=== PATIENT | male | born 1955 | race Caucasian/White ===

== ENCOUNTER 2016-05-15 20:21 | Inpatient (IN) | payer BC, MEDICARE ==
[~2016-05-15] VITALS: Ht 177.8 cm; Wt 88.0 kg
--- NOTE | ~2016-05-15 | PN ---
PATIENT:HOSSEIN CHAVEZ MEDICAL RECORD: [id number] LOCATION:D.MS Michelle221 ADMISSION DATE: 05/18/16 PROGRESS NOTE DATE OF SERVICE: 05/20/2016 He has had no return of bowel function. His pain is controlled. The patient was quite anxious. His nausea is improved. His anxiety is much better now that he is on Valium. TRANSINT:[id number] Voice Confirmation ID: [id number] DOCUMENT ID: [id number] ELISSA CRUZ MD CC: [id number] DICTATION DATE: 05/21/161913 REGIONAL DRIVER: 05/21/16 2100 ADM IN [facility] [address] [id number]
--- NOTE | ~2016-05-15 | DS ---
PATIENT:HOSSEIN CHAVEZ :53 MEDICAL RECORD: [id number] DISCHARGE SUMMARY ADMISSION DATE: 05/18/16 DISCHARGE DATE: 05/26/16 PRINCIPAL DIAGNOSIS: Diverticulosis with focal mild diverticulitis, recurrent. PROCEDURES: 1. Laparoscopic hand-assisted sigmoid colectomy. 2. Incidental appendectomy. 3. Colonoscopy. HOSPITAL COURSE: The patient was admitted with abdominal pain. He underwent a colonoscopy by Dr. Sanchez. It was felt that his recurrent pain was due to diverticulitis or diverticulosis. He has had multiple bouts of diverticulitis in the past. He underwent the above operative procedure. Bowel function returned. His diet was advanced. He was dismissed home. He is going home with [facility] for pain. I will see him in the office in 2-3 weeks. TRANSINT:[id number] Voice Confirmation ID: [id number] DOCUMENT ID: [id number] ELISSA CRUZ MD CC: ROSI ESTRELLA MD, SALVATORE CASTAÑEDA MD, ALLISON CHILDRESS MD and [id number] A DO DICTATION DATE: 05/26/16 145 ENVIRONMENTAL SPECIALIST: 05/27/16 0506 DIS IN 05/26/16 [facility] [address] [id number]
--- NOTE | ~2016-05-15 | PN ---
PATIENT:HOSSEIN CHAVEZ MEDICAL RECORD: [id number] LOCATION:D.MS Michelle221 ADMISSION DATE: 05/18/16 PROGRESS NOTE DATE OF SERVICE: 05/20/2016 This is a progress note addendum. He had no return of bowel function. He says pain is controlled. He seems a little depressed. TRANSINT:[id number] Voice Confirmation ID: [id number] DOCUMENT ID: [id number] ELISSA CRUZ MD CC: [id number] DICTATION DATE: 05/23/161819 TRAILER SECTIONS ASSEMBLER: 05/24/16 0206 ADM IN [facility] [address] [id number]
--- NOTE | ~2016-05-15 | OP ---
PATIENT NAME: HOSSEIN CHAVEZ MEDICAL RECORD: [id number] :53 LOCATION:D.MS [id number] ADMISSION DATE:05/18/16 SURGEON: ELISSA CRUZ MD DATE OF OPERATION: 05/19/2016 PREOPERATIVE DIAGNOSES: 1. Multiple bouts of recurrent diverticulitis 2. Severe diverticulosis. 3. Lower abdominal pain. POSTOPERATIVE DIAGNOSES: 1. Multiple bouts of recurrent diverticulitis 2. Severe diverticulosis. 3. Lower abdominal pain. PROCEDURES: 1. Hand-assisted laparoscopic sigmoid colectomy with splenic flexure takedown. 2. Incidental appendectomy. SURGEON: Elissa Cruz MD. AVIATION PROGRAM MANAGER: None. BLOOD LOSS: 100 cc. ANESTHESIA: General. COMPLICATIONS: None. The risks, possible complications and alternatives to procedure were explained to the patient. He elects to proceed. The indication for the incidental appendectomy is to avoid diagnostic confusion in the future should the patient have a recurrence or persistence of abdominal pain. OPERATIVE COURSE: The patient was conveyed to the operating room electively on 05/19/2016. General anesthesia was induced by the anesthesia staff. The abdomen was sterilely prepped and draped. The patient was in a lithotomy position. A transverse incision was accomplished 2 fingerbreadths cephalad to the pubic symphysis. Sharp dissection was carried down through skin and subcutaneous tissue as well as Paula fascia. I incised the anterior fascia transversely. I the rectus abdominis muscles. I entered the peritoneal cavity sharply. A lap disc device was inserted. A trocar was inserted through the lap disk device and the iris was tightened down. CO2 insufflation was begun. Under direct internal vision utilizing the television camera, a 5-mm trocar was inserted through an incision at the umbilicus. Another 5-mm trocar was inserted through an incision in the left lower quadrant. During insertion of the lap disk device and all trocars, there appeared to have been no injury to the bowels, any intraperitoneal or retroperitoneal structures. I began to incise along the left white line of Toldt. I took down the splenic flexure. I folded the left colon medially. I then took the top off of the lap disc device. I incised in the intersigmoid fossa. I identified the left ureter. Intravenous methylene blue was given. There was no spillage of OPERATIVE REPORT [id number] TOMLIN methylene blue and no evidence of a ureteral or bladder injury. I swept down the ureter for protection. I incised along both sides of the mesorectum for additional mobility of the rectum. I then created a window in the mesorectum where the taenia splay out at the junction of the rectum and the sigmoid colon. I stapled across this area with a DARRELL-75 stapler. I then chose my proximal extent of the resection to be at the junction of the descending and sigmoid colons. I stapled across here with the DARRELL-75 stapler. I took down the interpose mesentery with the EnSeal device. I then approached the appendix. I took down the mesoappendix with the EnSeal device. I stapled across the tip of the cecum with a DARRELL-75 stapler. I then brought the descending colon and the rectum into apposition side by side. It was held in place with some 3-0 silks. Enterotomy and proctotomy were accomplished. I advanced anvils of the DARRELL-75 stapler and then fired. The resulting colorectal defect was then closed with a running 4-0 Monocryl. I ensured that there was a significant room for passage of stool without stricturing. I then reinforced the suture line with interrupted horizontal mattress 3-0 silks. I then filled the pelvis with normal saline. I tested the anastomosis pneumatically by injecting air up through the anus. There was no bubbling of the air at the anastomosis. I then placed some omentum over the anterior portion of the anastomosis and then loosely tied it down with some silk ties, reperitonealized with a running #1 Vicryl. The rectus muscles were brought together into apposition with multiple interrupted horizontal mattress #1 Vicryls. The anterior fascia was closed with running #1 Vicryls. The subdermis was approximated with interrupted 3-0 Vicryls. The transverse incision was then closed with a running intracuticular 4-0 Vicryl suture. An additional horizontal mattress 4-0 Vicryl Rapide was placed on the right side of the incision, bringing together a little better. At the umbilicus, the skin was closed with interrupted 4-0 Vicryl Rapide sutures. The trocar site in the left lower quadrant was closed with a single intracuticular 3-0 Vicryl. Benzoin and Steri-Strips were applied. The patient was then extubated and conveyed to the post-anesthesia care unit where he was in stable condition. TRANSINT:[id number] Voice Confirmation ID: [id number] DOCUMENT ID: [id number] ELISSA CRUZ MD CC: SALVATORE CASTAÑEDA MD and JUAN SAMSON DO [id number] DICTATION DATE: 05/19/161923 INTEGRATED LOGISTICS PROGRAMS DIRECTOR: 05/19/162029 [facility] IN [facility] [address] [id number]
[2016-05-15 20:00] VITALS: BP 113/86
[~2016-05-15 20:21] MED LIST: CINNAMON500 MG OR; FISH OIL 1,0001 CA1 PO; FLAGYL250 MG PO; FLOMAX0.4 MG PO; LEVAQUIN500 MG PO; LISINOPRIL5 MG PO; PRILOSEC20 MG PO; ULTRAM50 MG PO; ZOFRAN4 MG PO
--- NOTE | 2016-05-15 21:15 | NUR ---
RECIEVED PT TO FLOOR AMBULATORY. ALERT AND ORIENTED AND ABLE TO VERBALIZE NEEDS. PT STATES PAIN IS 5/10. PT HAS NO NEEDS AT THIS TIME. PT IS ORIENTED TO ROOM AND USE OF CALL LIGHT. WILL MONITOR. SIDE RAILS X 2. BED LOW. CALL LIGHT IN REACH.
--- NOTE | 2016-05-15 22:25 | NUR ---
IV SITED TO RIGHT FOREARM X 1 ATTEMPT. 20G. GOOD BLOOD RETURN. FLUSHES W/O DIFFICULTY. FLUIDS AND ZOFRAN DRIP HOOKED UP PER ORDER. ONE TIME DOSE OF IV ZOFRAN ALSO ADMINISTERED AT THIS TIME. NO NEEDS ARE VOICED. WILL MONITOR. SIDE RAILS X 2. BED LOW. CALL LIGHT IN REACH.
[2016-05-16 01:58] VITALS: BP 113/86; BMI 27.8
[2016-05-16] MEDS ORDERED: FLOMAX0.4 MG PO (02:07)
[2016-05-16] MEDS ORDERED: MULTIPLE VITAMI1 TA1 PO (02:08)
[2016-05-16] MEDS ORDERED: NORVASC5 MG PO (02:08)
[2016-05-16] MEDS ORDERED: CIPRO500 MG PO (02:12)
[2016-05-16] MEDS ORDERED: FLAGYL500 MG PO (02:13)
[2016-05-16 04:00] VITALS: BP 110/69
[2016-05-16 05:01] LABS: BASOPHILS 0.4 % (0.0-2.0); EOSINOPHILS 2.5 % (0-7); HEMATOCRIT 43.5 % (42.0-54.0); HEMOGLOBIN 14.9 g/dL (13.5-17.5); IMMATURE GRANULOCYTES 0.5 % (0-5); LYMPHOCYTES 38.6 % (15-50); MCH 30.8 pg (26.0-34.0); MCHC 34.3 g/dL (31.0-37.0); MCV 89.9 fL (80.0-100.0); MONOCYTES 8.4 % (2-11); NEUTROPHILS 49.6 % (40-80); PLATELET COUNT 258 10x3/uL (130-400); RBC 4.84 10x6/uL (4.20-6.10); RDW 13.2 % (11.5-14.5)
[2016-05-16 05:58] LABS: ALBUMIN 3.3 g/dL (3.4-5.0); ANION GAP 9.4 mmol/L (8-16); BILIRUBIN - TOTAL 0.39 mg/dL (0.2-1.3); CALCIUM 8.5 mg/dL (8.5-10.1); CARBON DIOXIDE 28.3 mmol/L (21.0-32.0); CREATININE - SERUM 1.3 mg/dL (0.6-1.3); POTASSIUM - SERUM 3.7 mmol/L (3.5-5.1); PROTEIN - SERUM 6.5 g/dL (6.4-8.2)
--- NOTE | 2016-05-16 07:10 | NUR ---
WALKING ROUNDS.ASSESSMENT PER FLOW SHEET.PT WITHOUT DISTRESS.STATES PAIN 6/10 SCALE TO LOWER ABDOMEN.DECLINES PAIN MEDS.NPO FOR TESTING.CALL LIGHT IN REACH
[2016-05-16 08:12] VITALS: BP 123/84
--- NOTE | 2016-05-16 09:10 | NUR ---
AM MEDS.STILL DECLINES PAIN MEDS FOR PAIN,BUT STATES 7/10 SCALE TO LOWER ABDOMEN.MONITOR
--- NOTE | 2016-05-16 11:27 | NUR ---
SCD'S ORDERED.IS TO BEDSIDE WITH INSTRUCTION.PT STATES UNDERSTANDING
[2016-05-16 11:50] VITALS: BP 121/84
--- NOTE | 2016-05-16 12:50 | NUR ---
Patient Name: HOSSEIN CHAVEZ Admission Status: Elective Accout number: [id number] Admission Date: 05-15-2016 : 1955 Admission Diagnosis: Attending: KAN Current LOS: 1 Anticipated DC Date: 05-19-2016 Planned Disposition: Home Primary Insurance: [employer] OUT OF STATE Discharge Planning Comments: CM MET WITH PATIENT AND HIS SISTER (DYLLAN) REGARDING D/C NEEDS AND PLANS. PATIENT STATED HE LIVES ALONE AND HIS SISTER WILL DRIVE HIM HOME AT DISCHARGE. PATIENT STATED THERE ARE 3 STEPS W/RAILS TO ENTER HIS HOME AND NO STAIRS INSIDE. PATIENT STATED HE IS INDEPENDENT WITH HIS CARE AND HAS NO DME AT HOME. PATIENTS PCP IS DR. CASTAÑEDA AND PHARMACY IS [facility] AT [facility]. PATIENT DENIES THE NEED FOR HOME HEALTH AND HAS NO OTHER NEEDS AT THIS TIME. CM WILL CONTINUE TO FOLLOW PATIENT WITH D/C NEEDS AND PLANS. PCP DR. GARRY [facility]- [phone] DYLLAN (SISTER) [phone] [place] Hand: Jacqueline Lang Is the patient Alert and Oriented? Yes 0 * How many steps to enter\exit or inside your home? 3 W/RAILS 0 * PCP DR. CASTAÑEDA 0 * Pharmacy [facility] 0 * Preadmission Environment Home Alone 0 * ADLs Independent 0 * Equipment None 0 * List name and contact numbers for known caregivers / representatives who currently or will assist patient after discharge: DYLLAN (SISTER) [phone] 0 * Community resources currently utilized None 0 * Additional services required to return to the preadmission environment? Yes 0 * Can the patient safely return to the preadmission environment? Yes 0 * Has this patient been hospitalized within the prior 30 days at any hospital? No 0 Grand Total: 0
[2016-05-16 13:42] VITALS: Ht 177.8 cm; Wt 88.0 kg
[2016-05-16 15:38] VITALS: BP 110/81
--- NOTE | 2016-05-16 17:46 | NUR ---
REMAINS WITHOUT NEEDS,WITHOUT CHANGE.CONT PLAN OF CARE
--- NOTE | 2016-05-16 18:51 | NUR ---
ZELY PREP ORDERED.PT DECLINES TO DRINK AT PRESENT.
[2016-05-16 20:00] VITALS: BP 125/88
--- NOTE | 2016-05-16 20:00 | NUR ---
ASSESSMENT PER FLOWSHEET. SR UP X2 CALL LIGHT WITHIN REACH PT REQUESTING IV BE TURNED OFF SO HE DOESN'T HAVE TO PULL ON IT WHEN GOLYTELY STARTS WORKING. IV PATENT RT ARM OF D5NS AT 125CC'S/HR ZOFRAN GTT AT 4.7CC'S/HR. SCD'S OFF AT THIS TIME.
--- NOTE | 2016-05-16 22:00 | NUR ---
PT STARTING TO DRINK THE GOLYTELY PREP.IV OFF AT THIS TIME.
[2016-05-17] VITALS (14 sets, daily range): BP systolic 104–133; BP diastolic 60–89
--- NOTE | 2016-05-17 | NUR ---
REMAINS NPO EXCEPT FOR PREP.
--- NOTE | 2016-05-17 03:09 | NUR ---
RESTING AT THIS TIME PT STILL DOES NOT WANT IV FLUIDS AT THIS TIME.
[2016-05-17 05:46] LABS: BASOPHILS 0.3 % (0.0-2.0); EOSINOPHILS 2.4 % (0-7); HEMATOCRIT 42.5 % (42.0-54.0); HEMOGLOBIN 14.6 g/dL (13.5-17.5); IMMATURE GRANULOCYTES 0.5 % (0-5); LYMPHOCYTES 33.1 % (15-50); MCH 30.8 pg (26.0-34.0); MCHC 34.4 g/dL (31.0-37.0); MCV 89.7 fL (80.0-100.0); MEAN PLATELET VOLUME 9.7 fL (7.4-10.4); MONOCYTES 7.8 % (2-11); NEUTROPHILS 55.9 % (40-80); PLATELET COUNT 246 10x3/uL (130-400); RBC 4.74 10x6/uL (4.20-6.10); RDW 13.1 % (11.5-14.5); WBC 7.8 10x3/uL (4.8-10.8)
[2016-05-17 06:17] LABS: ALBUMIN 3.2 g/dL (3.4-5.0); ANION GAP 11.9 mmol/L (8-16); BILIRUBIN - TOTAL 0.4 mg/dL (0.2-1.3); CALCIUM 8.3 mg/dL (8.5-10.1); CARBON DIOXIDE 27.4 mmol/L (21.0-32.0); CREATININE - SERUM 1.2 mg/dL (0.6-1.3); POTASSIUM - SERUM 4.3 mmol/L (3.5-5.1); PROTEIN - SERUM 5.9 g/dL (6.4-8.2)
--- NOTE | 2016-05-17 07:15 | NUR ---
REPORT RECEIVED FROM FABRIC CUTTER NURSE. CALL LIGHT IN REACH.
--- NOTE | 2016-05-17 08:23 | NUR ---
ASSESSMENT COMPLETED. REFUSES SCDs. IN ROOM. CALL LIGHT IN REACH. WILL CONTINUE WITH PLAN OF CARE.
--- NOTE | 2016-05-17 10:50 | NUR ---
CONSENT FORMS SIGNED AND WITNESSED. AT BEDSIDE. CALL LIGHT IN REACH. STATES PAIN OF 5 BUT REFUSES PAIN MEDS.
--- NOTE | 2016-05-17 11:17 | NUR ---
ALERT IN LOW OBRIEN POSITION. RESPIRATIONS EVEN AND UNLABORED. ROSI RN NURSE HOSPITALIST MEDICAL DIRECTOR PRESENT AT BEDSIDE. BED IN LOW POSITION. CALL LIGHT IN REACH.
--- NOTE | 2016-05-17 11:46 | NUR ---
AM MEDS ADMINISTERED WITH SIP OF WATER. PROTONIX IVP. IN ROOM. CALL LIGHT IN REACH.
--- NOTE | 2016-05-17 11:48 | NUR ---
PASSWOD OBTAINED AND PLACED IN COMPUTER.
--- NOTE | 2016-05-17 12:40 | NUR ---
NO NEEDS VOICED AT THIS TIME. CALL LIGHT IN REACH.
--- NOTE | 2016-05-17 14:41 | NUR ---
NEW BAG OF IV FLUIDS INITIATED. FAMILY AT BEDSIDE. CALL LIGHT IN REACH.
--- NOTE | 2016-05-17 16:47 | NUR ---
DENIES NEEDS AT THIS TIME. WAITING ON PHONE CALL TO PREOP PATIENT.
--- NOTE | 2016-05-17 17:33 | NUR ---
PREOP MEDS ADMINISTERED PER ORDER.
--- NOTE | 2016-05-17 18:37 | NUR ---
IN GI LAB AT THIS TIME.
--- NOTE | 2016-05-17 19:40 | NUR ---
RETURNED TO ROOM FROM GI LAB POST COLONOSCOPY. IV PATENT RT ARM MONITORING VITAL SIGNS UP AD DORENE TO BR VOIDS RETURNS BACK TO BED. SR UP X2 CALL LIGHT WITHIN REACH FAMILY MEMBERS AT BEDSIDE.
--- NOTE | 2016-05-17 21:00 | NUR ---
MONITORING VITAL SIGNS POST COLONOSCOPY.
[2016-05-18] VITALS (8 sets, daily range): BP systolic 91–134; BP diastolic 54–90
--- NOTE | 2016-05-18 | NUR ---
VS STABLE RESTING QUIETLY DENIES NEEDS.
--- NOTE | 2016-05-18 01:00 | NUR ---
UP AD DORENE TO BR VOIDS WELL. AT BEDSIDE
--- NOTE | 2016-05-18 05:15 | NUR ---
RESTING QUIETLY DENIES NEEDS.
[2016-05-18 05:35] LABS: BASOPHILS 0.3 % (0.0-2.0); EOSINOPHILS 2.5 % (0-7); HEMATOCRIT 41.2 % (42.0-54.0); HEMOGLOBIN 14.4 g/dL (13.5-17.5); IMMATURE GRANULOCYTES 0.5 % (0-5); LYMPHOCYTES 33.4 % (15-50); MCH 31.1 pg (26.0-34.0); MEAN PLATELET VOLUME 9.7 fL (7.4-10.4); MONOCYTES 8.8 % (2-11); NEUTROPHILS 54.5 % (40-80); PLATELET COUNT 258 10x3/uL (130-400); RBC 4.63 10x6/uL (4.20-6.10); RDW 13.1 % (11.5-14.5); WBC 7.6 10x3/uL (4.8-10.8)
--- NOTE | 2016-05-18 06:05 | NUR ---
NO CHANGES IN ASSESSMENT.
[2016-05-18 06:10] LABS: ALBUMIN 3.2 g/dL (3.4-5.0); ANION GAP 12.3 mmol/L (8-16); BILIRUBIN - TOTAL 0.46 mg/dL (0.2-1.3); CARBON DIOXIDE 24.2 mmol/L (21.0-32.0); CREATININE - SERUM 1.2 mg/dL (0.6-1.3); POTASSIUM - SERUM 3.5 mmol/L (3.5-5.1); PROTEIN - SERUM 6.1 g/dL (6.4-8.2)
--- NOTE | 2016-05-18 07:00 | NUR ---
REPORT RECEIVED FROM RESIDENTIAL SALES EXECUTIVE NURSE. CALL LIGHT IN REACH.
--- NOTE | 2016-05-18 07:15 | NUR ---
PATIENT IN BED WITH IV INTACT. NO COMPLAINTS OR SIGNS OF DISTRESS. CALL LIGHTW ITHIN REACH.
--- NOTE | 2016-05-18 08:01 | NUR ---
ASSESSMENT COMPLETED. AM MEDS ADMINISTERED. REFUSES SCDs. CALL LIGHT IN REACH. WILL CONTINUE WITH PLAN OF CARE.
--- NOTE | 2016-05-18 10:16 | NUR ---
IN SHOWER AT THIS TIME. CALL LIGHT IN REACH.
--- NOTE | 2016-05-18 12:39 | NUR ---
DENIES NEEDS AT THIS TIME. CALL LIGHT IN REACH. FAMILY AT BEDSIDE.
--- NOTE | 2016-05-18 13:26 | NUR ---
Nutrition Follow Up: Pt reported that his nausea has resolved but he is still with abdominal pain. Pt said that he is having surgery tomorrow. Meds noted including D5NS @ 150 ml/hr. Labs noted - Glucose slightly elevated. +BM 05/17/16. Rec advancing diet when medically feasible. RD will continue to monitor pt progress.
--- NOTE | 2016-05-18 14:20 | NUR ---
RESTING WITH EYES CLOSED. RESP EVEN AND UNLABORED. CALL LIGHT IN REACH.
--- NOTE | 2016-05-18 16:19 | NUR ---
HAS BEEN REFUSING IV FLUIDS SINCE GETTING OUT OF THE SHOWER.
--- NOTE | 2016-05-18 18:14 | NUR ---
NO CHANGES IN INITIAL ASSESSMENT. STILL REFUSES SCDs. CALL LIGHT IN REACH. WILL CONTINUE WITH PLAN OF CARE.
--- NOTE | 2016-05-18 19:30 | NUR ---
PT RECEIVED SITTING UP IN BED VISITING WITH MULTIPLE FAMILY MEMBERS AT BEDSIDE. PT IS ALERT AND ORIENTED X4. NO S/S OF DISTRESS NOTED. IV TO RIGHT FOREARM NOTED TO BE SALINE LOCKED AT THIS TIME. PT REFUSES IV FLUIDS AT THIS TIME. DENIES PAIN OR NEEDS AT THIS TIME. CALL LIGHT AND H2O IN PT REACH.
--- NOTE | 2016-05-19 04:12 | NUR ---
PATIENT UP TO BR AND BACK TO BED. AAOX4. 0 S/S OF DISTRESS. DENIES NEEDS. AT BEDSIDE.
[2016-05-19 05:52] LABS: BASOPHILS 0.2 % (0.0-2.0); EOSINOPHILS 1.6 % (0-7); HEMATOCRIT 44.6 % (42.0-54.0); HEMOGLOBIN 15.9 g/dL (13.5-17.5); IMMATURE GRANULOCYTES 0.4 % (0-5); LYMPHOCYTES 24.1 % (15-50); MCH 31.6 pg (26.0-34.0); MCHC 35.7 g/dL (31.0-37.0); MCV 88.7 fL (80.0-100.0); MEAN PLATELET VOLUME 9.6 fL (7.4-10.4); MONOCYTES 8.5 % (2-11); NEUTROPHILS 65.2 % (40-80); PLATELET COUNT 262 10x3/uL (130-400); RBC 5.03 10x6/uL (4.20-6.10)
[2016-05-19 05:54] LABS: WBC 10.2 10x3/uL (4.8-10.8)
[2016-05-19 06:15] LABS: ALBUMIN 3.6 g/dL (3.4-5.0); ANION GAP 11.7 mmol/L (8-16); BILIRUBIN - TOTAL 0.65 mg/dL (0.2-1.3); CALCIUM 8.7 mg/dL (8.5-10.1); CARBON DIOXIDE 26.1 mmol/L (21.0-32.0); CREATININE - SERUM 1.3 mg/dL (0.6-1.3); POTASSIUM - SERUM 3.8 mmol/L (3.5-5.1)
[2016-05-19 07:30] VITALS: BP 123/97
[2016-05-19 07:55] VITALS: BP 114/76
--- NOTE | 2016-05-19 08:00 | NUR ---
RECIEVD ON WALKING ROUNDS CALL LIGHT IN REACH PT WITH IV INFILTRATED TO RIGHT FORARM. RESITED TO LEFT INNER FORARM 20 GA X 1 STICK. PT TO HAVE HALS COLECTOMY TODAY WITH DR CURZ. ALL CONSENTS SIGNED AND TO CHART.
[2016-05-19 12:22] VITALS: BP 117/80
--- NOTE | 2016-05-19 15:00 | NUR ---
PT TO PREPROCEEDURE AT THIS TIME VIA BED. PT AWAKE AND ALERT PREOP MEDS GIVEN PER ORDER. SPOUSE AT BEDSIDE. WILL MONITOR.
[2016-05-19 15:24] VITALS: BP 116/82
[2016-05-19 19:00] VITALS: BP 109/71
--- NOTE | 2016-05-20 02:01 | NUR ---
RESTING WITH EYES CLOSED, NO ACUTE DISTRESS NOTED, SR'S UP ,CL IN REACH
[2016-05-20 05:39] LABS: BASOPHILS 0.1 % (0.0-2.0); EOSINOPHILS 0 % (0-7); HEMATOCRIT 39.9 % (42.0-54.0); HEMOGLOBIN 13.9 g/dL (13.5-17.5); IMMATURE GRANULOCYTES 0.3 % (0-5); LYMPHOCYTES 7.2 % (15-50); MCHC 34.8 g/dL (31.0-37.0); MCV 89.1 fL (80.0-100.0); MEAN PLATELET VOLUME 9.5 fL (7.4-10.4); MONOCYTES 6.5 % (2-11); NEUTROPHILS 85.9 % (40-80); PLATELET COUNT 282 10x3/uL (130-400); RBC 4.48 10x6/uL (4.20-6.10); RDW 13.1 % (11.5-14.5)
[2016-05-20 05:49] LABS: WBC 14.4 10x3/uL (4.8-10.8)
[2016-05-20 06:06] LABS: ALBUMIN 2.9 g/dL (3.4-5.0); BILIRUBIN - TOTAL 0.5 mg/dL (0.2-1.3); CALCIUM 8.2 mg/dL (8.5-10.1); CARBON DIOXIDE 24.1 mmol/L (21.0-32.0); CREATININE - SERUM 1.2 mg/dL (0.6-1.3); POTASSIUM - SERUM 4.1 mmol/L (3.5-5.1); PROTEIN - SERUM 5.9 g/dL (6.4-8.2)
--- NOTE | 2016-05-20 07:30 | NUR ---
RECIEVED PT DURING WALKING ROUNDS. PT RESTING COMFORTABLY IN BED WITH NO COMPLAINTS OF PAIN AT THIS TIME. ASSESSMENT DONE PER FLOWSHEET. BED IN LOW POSITION AND CALL LIGHT WITHIN REACH. AT BEDSIDE, WILL CONTINUE TO MONITOR.
--- NOTE | 2016-05-20 08:10 | NUR ---
PATIENT ALERT IN BED WITH FAMILY PRESENT. RESPIRTAIONS EVEN AND UNLABORED. SIDE RAILS UP X2. BED IN LOW POSITION. CALL LIGHT IN REACH.
[2016-05-20 08:40] VITALS: BP 95/66
--- NOTE | 2016-05-20 09:50 | NUR ---
ENTERED THE ROOM TO ADMINISTER MEDS AT THIS TIME, PTS AND DAUGHTER AT BEDSIDE, PTS DAUGHTER STATES THAT THE PT IS NAUSEATED. GAVE THE PT ALCOHOL SWAB TO SNIFF. ADMINISTERED PROTONIX PER ORDER AND INSTRUCTED FAMILY TO CALL IF NAUSEA DOESNT SUBSIDE IN 30 MINUTES. BED IN LOW POSITION AND CALL LIGHT WITHIN REACH. WILL CONTINUE TO [facility].
--- NOTE | 2016-05-20 10:30 | NUR ---
CALLED AT THIS TIME, RECIEVED ORDERS FOR BENADRYL AND ATIVAN. WILL ADMINISTER PER ORDER AND CONTINUE TO MONITOR FOR NAUSEA.
--- NOTE | 2016-05-20 12:05 | NUR ---
PT DAUGHTER CAME TO THE DESK AT TO SAY THAT THE PT NOW HAS A HEADACHE, WHEN ENTERING THE ROOM PT HAD MULTIPLE VISITORS. THE PT STATED HE WAS HAVING TROULE WITH HIS SPEECH AND HIS MOUTH WAS DRY, I SWABBED HIS MOUTH WITH WATER AND THE PROBLEM RESOLVED. INSTRUCTED PT HE COULD HAVE SMALL SIPS OF WATER PER ORDER TO KEEP HIS MOUTH MOIST. INSTRUCTED VISITORS AT THIS TIME THAT I WAS GOING TO TURN THE LIGHTS OUT SO PT COULD REST AND POSSIBLY HELP NAUSEA AND HEADACHE SUBSIDE. TURNED LIGHT OFF, BED IN LOW POSITION AND CALL LIGHT WITHIN REACH. WILL CONTINUE TO MONITOR.
[2016-05-20 12:34] VITALS: BP 99/60
[2016-05-20 16:34] VITALS: BP 98/63
--- NOTE | 2016-05-20 19:57 | NUR ---
PATIENT RESTING IN BED WITH FAMILY AT BEDSIDE. PATIENT DENIES NEEDS AT THIS TIME. BED IN LOWEST POSITION AND CALL LIGHT WITHIN REACH. ENCOURAGED PATIENT TO CALL IF HE HAS NEEDS.
[2016-05-20 21:36] VITALS: BP 91/49
[2016-05-21 05:06] LABS: BASOPHILS 0.2 % (0.0-2.0); EOSINOPHILS 0.8 % (0-7); HEMATOCRIT 37.1 % (42.0-54.0); HEMOGLOBIN 12.7 g/dL (13.5-17.5); IMMATURE GRANULOCYTES 0.2 % (0-5); LYMPHOCYTES 20.7 % (15-50); MCH 31.4 pg (26.0-34.0); MCHC 34.2 g/dL (31.0-37.0); MEAN PLATELET VOLUME 9.4 fL (7.4-10.4); MONOCYTES 7.3 % (2-11); NEUTROPHILS 70.8 % (40-80); RBC 4.04 10x6/uL (4.20-6.10); RDW 13.6 % (11.5-14.5); WBC 11.8 10x3/uL (4.8-10.8)
[2016-05-21 05:07] LABS: MCV 91.8 fL (80.0-100.0); PLATELET COUNT 218 10x3/uL (130-400)
[2016-05-21 05:26] LABS: ALBUMIN 2.7 g/dL (3.4-5.0); ANION GAP 9.9 mmol/L (8-16); BILIRUBIN - TOTAL 0.4 mg/dL (0.2-1.3); CALCIUM 7.9 mg/dL (8.5-10.1); CARBON DIOXIDE 25.9 mmol/L (21.0-32.0); CREATININE - SERUM 1.3 mg/dL (0.6-1.3); POTASSIUM - SERUM 3.8 mmol/L (3.5-5.1); PROTEIN - SERUM 5.6 g/dL (6.4-8.2)
--- NOTE | 2016-05-21 07:10 | NUR ---
PATIENT RECEIVED ALERT IN LOW OBRIEN POSITION. RESPIRATIONS EVEN AND UNLABORED. SIDE RAILS UP X2. BED IN LOW POSITION. CALL LIGHT IN REACH. FAMILY PRESENT. DENIES NEEDS.
[2016-05-21 07:53] VITALS: BP 102/68
--- NOTE | 2016-05-21 09:18 | NUR ---
SCHEDULED MEDICATION ADMINISTERED. PATIENT ALERT IN BED. FAMILY PRESENT. SIDE RAILS UP X2. BED IN LOW POSITION. CALL LIGHT IN REACH.
--- NOTE | 2016-05-21 12:25 | NUR ---
ALERT IN WITH FAMILY AT BEDSIDE. RESPIRATIONS EVEN AND UNLABORED. DENIES NEEDS. SIDE RAILS UP X2. BED IN LOW POSITION. CALL LIGHT IN REACH.
[2016-05-21 12:41] VITALS: BP 106/69
[2016-05-21 15:34] VITALS: BP 109/73
--- NOTE | 2016-05-21 15:55 | NUR ---
PATIENT ALERT IN BED WITH FAMILY PRESENT. RESPIRATIONS EVEN AND UNLABORED. SIDE RAILS UP X2. BED IN LOW POSITION. CALL LIGHT IN REACH.
--- NOTE | 2016-05-21 18:00 | NUR ---
ALERT IN BED VISITING WITH FAMILY. RESPIRATIONS EVEN AND UNLABORED. SIDE RAILS UP X1. BED IN LOW POSITION. CALL LIGHT IN REACH.
--- NOTE | 2016-05-21 19:43 | NUR ---
PATIENT RESTING IN BED WITH AT BEDSIDE AND DENIES NEEDS AT THIS TIME. BED IN LOWEST POSITION AND CALL LIGHT WITHIN REACH. ENCOURAGED PATIENT AND TO CALL IF THEY HAVE NEEDS.
[2016-05-21 22:19] VITALS: BP 105/66
[2016-05-22 03:29] VITALS: BP 105/71
--- NOTE | 2016-05-22 07:00 | NUR ---
REPORT RECEIVED FROM ORNAMENTAL METAL FABRICATOR APPRENTICE NURSE. CALL LIGHT IN REACH.
[2016-05-22 07:50] VITALS: BP 112/78
--- NOTE | 2016-05-22 09:40 | NUR ---
ASSESSMENT COMPLETED. SCDs TO BLE. CALL LIGHT IN REACH. WILL CONTINUE WITH PLAN OF CARE.
--- NOTE | 2016-05-22 09:54 | NUR ---
ASSESSMENT COMPLETED. AM MEDS ADMINISTERED. SCDs TO BLE. IN ROOM. CALL LIGHT IN REACH. WILL CONTINUE WITH PLAN OF CARE.
[2016-05-22 11:16] LABS: ALBUMIN 3.2 g/dL (3.4-5.0); ANION GAP 12.1 mmol/L (8-16); BILIRUBIN - TOTAL 0.62 mg/dL (0.2-1.3); CALCIUM 8.4 mg/dL (8.5-10.1); CARBON DIOXIDE 27.2 mmol/L (21.0-32.0); CREATININE - SERUM 1.2 mg/dL (0.6-1.3); POTASSIUM - SERUM 3.3 mmol/L (3.5-5.1); PROTEIN - SERUM 6.8 g/dL (6.4-8.2)
--- NOTE | 2016-05-22 11:20 | NUR ---
NO NEEDS VOICED AT THIS TIME. IN ROOM. CALL LIGHT IN REACH.
[2016-05-22 12:10] VITALS: BP 122/69
[2016-05-22 12:17] LABS: BASOPHILS 0.1 % (0.0-2.0); EOSINOPHILS 1.7 % (0-7); HEMOGLOBIN 14.2 g/dL (13.5-17.5); IMMATURE GRANULOCYTES 0.4 % (0-5); LYMPHOCYTES 27.5 % (15-50); MCH 31.5 pg (26.0-34.0); MCHC 34.6 g/dL (31.0-37.0); MCV 90.9 fL (80.0-100.0); MEAN PLATELET VOLUME 9.9 fL (7.4-10.4); MONOCYTES 8.1 % (2-11); NEUTROPHILS 62.2 % (40-80); PLATELET COUNT 210 10x3/uL (130-400); RBC 4.51 10x6/uL (4.20-6.10); RDW 13.4 % (11.5-14.5)
[2016-05-22 12:19] LABS: WBC 8.4 10x3/uL (4.8-10.8)
--- NOTE | 2016-05-22 13:30 | NUR ---
EPIDURAL REMOVED WITH TIP INTACT PER NURSE ANESTHESIST.
--- NOTE | 2016-05-22 13:47 | NUR ---
IV TO RIGHT FOREARM WITH REDNESS AND TENDERNESS. DC'D WITH TIP INTACT. RESITED TO RIGHT AC WITH 22 GA XI STICK. IV TO RIGHT FOREARM DC'D WITH TIP INTACT. PAGED DR. CRUZ FOR NEW ORDERS. WAITING NURSE COMPANION BACK.
--- NOTE | 2016-05-22 14:19 | NUR ---
GOLD WITH DR. CRUZ. NEW ORDERS RECEIVED.
--- NOTE | 2016-05-22 14:44 | NUR ---
LAYING QUIETLY IN BED AT PRESENT RESP EVEN AND UNLABORED AT PRESENT.FAMILY AT BEDSIDE.
--- NOTE | 2016-05-22 16:03 | NUR ---
DEMEROL PASTE UP ARTIST APPRENTICE INITIATED PER ORDER. 25 MG BOLUS GIVEN. C/O NAUSE. ONE TIME DOSE OF ZOFRAN IVP. FLOMAX AND VALIUM PO. CALL LIGHT IN REACH. SISTER IN ROOM. CONKLIN CATH DC'D WITH TIP INTACT.
[2016-05-22 16:05] VITALS: BP 125/80
--- NOTE | 2016-05-22 18:00 | NUR ---
NO CHANGES IN INITIAL ASSESSMENT. SCDs TO BLE. SISTER AT BEDSIDE. CALL LIGHT IN REACH. WILL CONTINUE WITH PLAN OF CARE.
[2016-05-22 19:00] VITALS: BP 143/87
--- NOTE | 2016-05-22 20:00 | NUR ---
ASSESSMENT PER FLOWSHEET. ALERT ORIENTED X3 IV PATENT RT AC OF TPN AT 50CC'S/HR ZOFRAN GTT AT 4.7CC'S/HR NS AT 50 CC'S/HR SHEET LAYER OF DEMEROL IN USE WITH SETTINGS AT 10MG Q10MIN WITH 200MG Q4H L/O. USED FOR PAIN CONTROL. PT VOIDED IN URINAL 200 CC'S CLEAR YELLOW URINE. FAMILY AT BEDSIDE.
--- NOTE | 2016-05-22 21:30 | NUR ---
PT VOMITING BILE COLORED EMESIS. NOTIFIED DR. CRUZ WILL REPEAT ZOFRAN 4MG IVP AGAIN.
--- NOTE | 2016-05-22 21:36 | NUR ---
ZOFRAN 4MG IVP GIVEN FOR NAUSEA AND VOMITING.
--- NOTE | 2016-05-22 21:53 | NUR ---
RESTING AT THIS TIME COOL CLOTH TO HEAD AND NECK. SR UP X2 CALL LIGHT WITHIN REACH. INCISIONS TO ABDOMEN ONE MIDLINE AND 2 LAP SITES ON THE RT ABDOMEN C/D/I.
[2016-05-23] VITALS: BP 119/79
--- NOTE | 2016-05-23 | NUR ---
CONTINUES TO HAVE STOMACH PAIN AND NAUSEA. STATES EVERYTIME HE PUSHES THE DEMEROL FLAT SPRING ASSEMBLER HE GETS SICK. VOIDS WELL IN THE URINAL.
--- NOTE | 2016-05-23 02:05 | NUR ---
PAGED DR. JOHNSON IN REGARDS TO PATIENT'S PAIN AND NAUSEA. ORDERS REC'D.NOTIFIED CARTOGRAPHIC ENGINEER Maxwell GONZALEZ RN TO PULL MEDS.
--- NOTE | 2016-05-23 02:27 | NUR ---
SUPERVISORE HERE MEDS PULLED AND TORADOL 30MG IVP X1 DOSE GIVEN FOR PAIN CONTROL. TYLENOL 1000MG IVPB HUNG SCHEDULED DOSE.
--- NOTE | 2016-05-23 03:15 | NUR ---
EYES CLOSED RESPIRATIONS WITH EASE AND UNLABORED.
[2016-05-23 04:00] VITALS: BP 125/77
--- NOTE | 2016-05-23 04:32 | NUR ---
CONTINUES TO SLEEP. DENIES NEEDS AT THIS TIME.
[2016-05-23 05:55] LABS: BASOPHILS 0.1 % (0.0-2.0); EOSINOPHILS 1.1 % (0-7); HEMATOCRIT 39.4 % (42.0-54.0); HEMOGLOBIN 13.7 g/dL (13.5-17.5); IMMATURE GRANULOCYTES 0.3 % (0-5); LYMPHOCYTES 13.7 % (15-50); MCH 30.9 pg (26.0-34.0); MCHC 34.8 g/dL (31.0-37.0); MEAN PLATELET VOLUME 9.9 fL (7.4-10.4); MONOCYTES 5.9 % (2-11); NEUTROPHILS 78.9 % (40-80); PLATELET COUNT 250 10x3/uL (130-400); RBC 4.43 10x6/uL (4.20-6.10); RDW 12.9 % (11.5-14.5); WBC 9.2 10x3/uL (4.8-10.8)
[2016-05-23 06:21] LABS: MCV 88.9 fL (80.0-100.0)
[2016-05-23 06:27] LABS: ALBUMIN 2.9 g/dL (3.4-5.0); ANION GAP 9.5 mmol/L (8-16); BILIRUBIN - TOTAL 0.6 mg/dL (0.2-1.3); CALCIUM 8.6 mg/dL (8.5-10.1); CARBON DIOXIDE 28.5 mmol/L (21.0-32.0); CREATININE - SERUM 1.1 mg/dL (0.6-1.3); PROTEIN - SERUM 6.3 g/dL (6.4-8.2)
--- NOTE | 2016-05-23 07:15 | NUR ---
AWAKE C/O NAUSEA AT PRESENT IV CONT AT WITH ART LIBRARIAN IN PLACE LAP INCISIONS INTACT AT PRESENT VOIDING FREELY AT PRESENT.
[2016-05-23 08:37] VITALS: BP 123/81
--- NOTE | 2016-05-23 09:00 | NUR ---
PRINCIPAL LAW CLERK IN PLACE PT STATES DEMEROL MAKES HIM SICK AT PRESENT.
--- NOTE | 2016-05-23 10:00 | NUR ---
QUIET IN ROOM SLEEPING QUIETLY AT PRESENT N/C VOICED AT PRESENT.
--- NOTE | 2016-05-23 11:11 | NUR ---
IV ACCESS-22 GAUGE INSERTED IN LEFT WRIST FOR ACCESS. JOAN EWING RN
--- NOTE | 2016-05-23 12:10 | NUR ---
QUIET IN ROOM AT PRESENT DENIES ANY NEEDS AT PRESENT IV CONT AT PRESENT VIA LEFT WRIST.
[2016-05-23 12:24] VITALS: BP 151/90
--- NOTE | 2016-05-23 14:12 | NUR ---
NUTRITION MONITORING & EVAL CHART REVIEWED. CLEAR LIQUID DIET. CLINIMIX @ 50 CC/HR. WILL MONITOR DIET ADVANCEMENT, TOLERANCE. RD FOLLOWING
--- NOTE | 2016-05-23 15:00 | NUR ---
AMB IN ROOM VOIDING FREELY AT PRESENT.
[2016-05-23 16:26] VITALS: BP 139/94
--- NOTE | 2016-05-23 17:00 | NUR ---
STATUS REMAINS UNCHGD AT PRESENT.
[2016-05-23 20:00] VITALS: BP 121/84
--- NOTE | 2016-05-23 20:00 | NUR ---
ASSESSMENT PER FLOWSHEET. FAMILY MEMBERS AT BEDSIDE. IV PATENT LEFT HAND OF NS AT 50CC'S/HR SITE CLEAR. TPN AT 50CC'S/HR ZOFRAN GTT AT 4.7CC'S/HR. DENIES NEEDS AT THIS TIME TURNS SELF IN BED. ABDOMINAL INCISION DRSG C/D/I.
--- NOTE | 2016-05-23 22:00 | NUR ---
MEDS GIVEN PER MAR. RESTING QUIETLY DENIES NEED. FAMILY MEMBERS AT BEDSIDE. SR UP X2 CALL LIGHT WITHIN REACH.
--- NOTE | 2016-05-24 01:31 | NUR ---
RESTING QUIEWTLY DENIES NEEDS.
[2016-05-24 04:00] VITALS: BP 113/810
--- NOTE | 2016-05-24 04:03 | NUR ---
EYES CLOSED RESPIRATIONS WITH EASE AND UNLABORED.
[2016-05-24 06:07] LABS: BASOPHILS 0.3 % (0.0-2.0); EOSINOPHILS 3.7 % (0-7); HEMATOCRIT 40.1 % (42.0-54.0); IMMATURE GRANULOCYTES 0.3 % (0-5); LYMPHOCYTES 24.2 % (15-50); MCHC 34.9 g/dL (31.0-37.0); MCV 88.7 fL (80.0-100.0); MEAN PLATELET VOLUME 9.7 fL (7.4-10.4); MONOCYTES 8.6 % (2-11); NEUTROPHILS 62.9 % (40-80); PLATELET COUNT 258 10x3/uL (130-400); RBC 4.52 10x6/uL (4.20-6.10); RDW 12.9 % (11.5-14.5)
[2016-05-24 06:11] LABS: WBC 6.8 10x3/uL (4.8-10.8)
[2016-05-24 06:45] LABS: ANION GAP 13.4 mmol/L (8-16); BILIRUBIN - TOTAL 0.48 mg/dL (0.2-1.3); CALCIUM 8.5 mg/dL (8.5-10.1); CARBON DIOXIDE 24.7 mmol/L (21.0-32.0); CREATININE - SERUM 1.1 mg/dL (0.6-1.3); POTASSIUM - SERUM 4.1 mmol/L (3.5-5.1); PROTEIN - SERUM 6.4 g/dL (6.4-8.2)
--- NOTE | 2016-05-24 07:15 | NUR ---
WALKING ROUNDS.ASSESSMENT PER FLOW SHEET.PT WITHOUT DISTRESS.DRESSING TO ABDOMEN CDI.LAP SITES X2 CLEAN AND DRY.SCD'S PLACED O PT.CALL LIGHT IN REACH
[2016-05-24 08:29] VITALS: BP 114/62
--- NOTE | 2016-05-24 09:30 | NUR ---
MEDS ORDERED PER APR FOR HEADACHE.C/O SOME NAUSEA AT PRESENT.MONITOR FOR NEEDS
[2016-05-24 12:28] VITALS: BP 116/75
--- NOTE | 2016-05-24 14:46 | NUR ---
FEELING BETTER,LESS NAUSEA.MONITOR
--- NOTE | 2016-05-24 16:10 | NUR ---
FAMILY AT BEDSIDE.REMAINS WITHOUT DISTRESS.
[2016-05-24 16:28] VITALS: BP 132/70
[2016-05-24 19:00] VITALS: BP 115/69
--- NOTE | 2016-05-24 20:00 | NUR ---
ASSESSMENT PER FLOWSHEET. IV PATENT RT ARM OF TPN AT 50CC'S/HR NS AT 50CC'S/HR ZOFRAN GTT AT 4.7CC'S/HR SITE CLEAR. FAMILY MEMBERS AT BEDSIDE. VOIDS WELL IN URINAL. SR UP X2 CALL LIGHT WITHIN REACH. INCISION TO ABDOMEN C/D/I.
--- NOTE | 2016-05-24 22:00 | NUR ---
MEDS PER MAR.
--- NOTE | 2016-05-25 | NUR ---
EYES CLOSED RESPIRATIONS WITH EASE AND UNLABORED. SISTER AT BEDSIDE.
[2016-05-25 06:20] LABS: BASOPHILS 0.4 % (0.0-2.0); EOSINOPHILS 3.4 % (0-7); HEMATOCRIT 41.3 % (42.0-54.0); HEMOGLOBIN 14.5 g/dL (13.5-17.5); IMMATURE GRANULOCYTES 0.6 % (0-5); LYMPHOCYTES 23.6 % (15-50); MCH 31.3 pg (26.0-34.0); MCHC 35.1 g/dL (31.0-37.0); MEAN PLATELET VOLUME 9.9 fL (7.4-10.4); MONOCYTES 8.2 % (2-11); NEUTROPHILS 63.8 % (40-80); PLATELET COUNT 284 10x3/uL (130-400); RBC 4.64 10x6/uL (4.20-6.10); RDW 12.9 % (11.5-14.5); WBC 8.3 10x3/uL (4.8-10.8)
[2016-05-25 06:47] LABS: ALBUMIN 2.9 g/dL (3.4-5.0); ANION GAP 11.2 mmol/L (8-16); BILIRUBIN - TOTAL 0.5 mg/dL (0.2-1.3); CALCIUM 8.8 mg/dL (8.5-10.1); CARBON DIOXIDE 26.6 mmol/L (21.0-32.0); CREATININE - SERUM 1.1 mg/dL (0.6-1.3); POTASSIUM - SERUM 3.8 mmol/L (3.5-5.1); PROTEIN - SERUM 6.5 g/dL (6.4-8.2)
--- NOTE | 2016-05-25 07:25 | NUR ---
WALKING ROUNDS.ASSESSMENT PER FLOW SHEET.PT WITHOUT DISTRESS,BUT C/O NAUSEA AND HEADACHE.PT STATES IF COULD GET RID OF NAUSEA AND HEADACHE HE WOULD BE FINE.STATES HE HAS HAD FREQUENT BURPING WITH NAUSEA,BUT NO BM.MOITOR FOR NEEDS.
--- NOTE | 2016-05-25 08:45 | NUR ---
IV PAIN MEDS ORDERED PER MAR. HAS REQUESTED IV ZOFRAN BE STOPPED AND TABLET GIVEN TO PT.SHE ALSO REQUESTED ALL OTHER IV MEDS BE DC EXCEPT IVF.SHE STATES HER WILL RECOVER BETTER.SEE MARS
--- NOTE | 2016-05-25 09:23 | NUR ---
STILL HAS NAUSEA,MEDS PER MAR.
[2016-05-25 09:52] VITALS: BP 145/85
[2016-05-25 11:48] VITALS: BP 108/77
--- NOTE | 2016-05-25 14:24 | NUR ---
IV DCD WITH CATH INTACT.DISCHARGE INSTRUCTIONS,STATES UNDERSTANDING.LEFT UNIT VIA WHEELHAIR.
--- NOTE | 2016-05-25 15:44 | NUR ---
FEELING BETTER.PT TOLERATING SIPS OF CLD AND BITES OF CRACKERS.FAMILY REMAINS AT BEDSIDE.
[2016-05-25 15:49] VITALS: BP 113/84
--- NOTE | 2016-05-25 16:39 | NUR ---
FEELING BETTER,AMBULATED IN HALLS.VISITING FAMILY.REMAINS WITHOUT NAUSEA.DECLINES IVF.CALL LIGHT IN REACH
--- NOTE | 2016-05-25 19:30 | NUR ---
RECIEVED SHIFT REPORT. PT IS LYING IN BED. ALERT AND ORIENTED AND ABLE TO VERBALIZE NEEDS. IV IS PATENT AND SALINE LOC AT THIS TIME. SCD'S OFF AT THIS TIME. PT IS AMBULATORY BUT WAS INSTRUCTED TO CALL FOR ANY ASSISTANCE NEEDED. PT STATES PAIN IS 5/10. NO NEEDS ARE VERBALIZED AT THIS TIME. WILL CONTINUE TO MONITOR. VISITOR AT BEDSIDE. SIDE RAILS ARE UP X 2. BED IS IN LOWEST POSITION. CALL LIGHT IS WITHIN REACH.
[2016-05-25 20:00] VITALS: BP 109/73
--- NOTE | 2016-05-25 20:37 | NUR ---
SHIFT ASSESSMENT COMPLETED. SCHEDULED PEPCID GIVEN PER ORDER. PT REFUSED SCHEDULED TORADOL, OFIRMEV AND SCOPALAMINE PATCH. NO NEEDS ARE VOICED. WILL MONITOR. SIDE RAILS X 2. BED LOW. CALL LIGHT IN REACH. VISITOR AT BEDSIDE.
[2016-05-26 05:47] LABS: BASOPHILS 0.4 % (0.0-2.0); EOSINOPHILS 3.6 % (0-7); HEMATOCRIT 42.2 % (42.0-54.0); IMMATURE GRANULOCYTES 0.6 % (0-5); LYMPHOCYTES 24.7 % (15-50); MCH 31.4 pg (26.0-34.0); MCHC 35.5 g/dL (31.0-37.0); MCV 88.3 fL (80.0-100.0); MEAN PLATELET VOLUME 9.7 fL (7.4-10.4); MONOCYTES 9.4 % (2-11); NEUTROPHILS 61.3 % (40-80); PLATELET COUNT 276 10x3/uL (130-400); RBC 4.78 10x6/uL (4.20-6.10); WBC 8.4 10x3/uL (4.8-10.8)
[2016-05-26 06:21] LABS: ALBUMIN 3.3 g/dL (3.4-5.0); ANION GAP 12.9 mmol/L (8-16); BILIRUBIN - TOTAL 0.59 mg/dL (0.2-1.3); CALCIUM 8.9 mg/dL (8.5-10.1); CARBON DIOXIDE 25.9 mmol/L (21.0-32.0); CREATININE - SERUM 1.2 mg/dL (0.6-1.3); POTASSIUM - SERUM 3.8 mmol/L (3.5-5.1); PROTEIN - SERUM 6.9 g/dL (6.4-8.2)
--- NOTE | 2016-05-26 07:00 | NUR ---
REPORT RECEIVED FROM PUBLIC RELATIONS SENIOR ASSOCIATE NURSE. CALL LIGHT IN REACH. DAUGHTER AT BEDSIDE.
--- NOTE | 2016-05-26 07:15 | NUR ---
FEELING BETTER TODAY.REPORTS BM.SAYS HE IS GOING TO AMBULATE.REMAINS WITHOUT NAUSEA.CALL LIGHT IN REACH
--- NOTE | 2016-05-26 07:38 | NUR ---
AMBULATED 500 FEET IN HALLWAY ADLIB ACCOMPLANIED BY DAUGHTER. TOLERATED WELL.
[2016-05-26 08:03] VITALS: BP 115/72
--- NOTE | 2016-05-26 08:40 | NUR ---
ASSESSMENT COMPLETED. REFUSES SCDs. CALL LIGHT IN REACH. WILL CONTINUE WITH PLAN OF CARE.
--- NOTE | 2016-05-26 10:19 | NUR ---
FLOMAX AND PEPCID PO. REFUSES NORVASC. DAUGHTER AT BEDSIDE. CALL LIGHT IN REACH.
--- NOTE | 2016-05-26 10:28 | NUR ---
TYLENOL PO PER C/O PAIN OF 3.
[2016-05-26] MEDS ORDERED: PEPCID20 MG PO (11:54)
[2016-05-26] MEDS ORDERED: ULTRAM50 MG PO (11:57)
[2016-05-26 12:23] VITALS: BP 111/78
--- NOTE | 2016-05-26 12:50 | NUR ---
DENIES PAIN AT THIS TIME. AMBULATED IN HALLWAY AT THIS TIME.
--- NOTE | 2016-05-26 13:25 | NUR ---
IV DC'D WITH TIP INTACT.
--- NOTE | 2016-05-26 15:00 | NUR ---
DC INSTRUCTIONS EXPLAINED TO PATIENT AND FAMILY. VERBALIZED UNDERSTANDING. RX FOR TRAMADOL GIVEN TO PATIENT. DC'D TO VEHICLE VIA WC WITH FAMILY.
--- NOTE | 2016-05-26 15:34 | NUR ---
LATE ENTRY: PATIENT DISCHARGED HOME - FAMILY DRIVING. PATIENT DENIED HOME HEALTH AND HAD NO OTHER NEEDS.
== END 2016-05-26 15:00 | disposition home or self-care (01) | DRG 331 ==
LOC: D.MS 20:21 → OBSVTIME 20:21 → D.MS 20:21
PROVIDERS: Family Medicine; Internal Medicine Gastroenterology; ADMIT Family Medicine
PROC: 0DBN8ZX Excision of Sigmoid Colon, Via Natural or Artificial Opening Endoscopic, Diagnostic (ICD-10-PCS; principal; 2016-05-17 16:15)
PROC: 0DTN0ZZ Resection of Sigmoid Colon, Open Approach (ICD-10-PCS; 2016-05-19)
PROC: 0DNL0ZZ Release Transverse Colon, Open Approach (ICD-10-PCS; 2016-05-19)
PROC: 0DTJ0ZZ Resection of Appendix, Open Approach (ICD-10-PCS; 2016-05-19)
DX: K57.32 Diverticulitis of large intestine without perforation or abscess without bleeding (principal); E86.0 Dehydration; I10 Essential (primary) hypertension; Z87.891 Personal history of nicotine dependence; E87.6 Hypokalemia

== ENCOUNTER → 2016-11-09 15:49 | Outpatient (CLI) | payer BC, MEDICARE ==
[2016-05-16 13:42] VITALS: BMI 27.8
[~2016-11-09 15:49] MED LIST changes: +CIPRO500 MG PO; +FLAGYL500 MG PO; +MULTIPLE VITAMI1 TA1 PO; +NORVASC5 MG PO; +PEPCID20 MG PO
== END | disposition home or self-care (01) ==
LOC: D.US 15:49
DX: R10.2 Pelvic and perineal pain (principal); R10.9 Unspecified abdominal pain

== ENCOUNTER 2017-06-21 12:56 | Inpatient (IN) | payer BC, MEDICARE ==
[~2017-06-21] VITALS: Ht 177.8 cm; Wt 90.0 kg
[2017-06-21 13:43] LABS: BASOPHILS 0.4 % (0-2); EOSINOPHILS 3.7 % (0-7); HEMATOCRIT 46.1 % (42.0-54.0); HEMOGLOBIN 16.4 g/dL (13.5-17.5); IMMATURE GRANULOCYTES 0.4 % (0-5); LYMPHOCYTES 31.8 % (15-50); MCH 31.8 pg (26.0-34.0); MCHC 35.6 g/dL (31.0-37.0); MCV 89.3 fL (80.0-100.0); MEAN PLATELET VOLUME 9.9 fL (7.4-10.4); MONOCYTES 5.5 % (2-11); NEUTROPHILS 58.2 % (40-80); PLATELET COUNT 274 10x3/uL (130-400); RBC 5.16 10x6/uL (4.20-6.10); RDW 13.1 % (11.5-14.5); WBC 8.9 10x3/uL (4.8-10.8)
[2017-06-21 13:53] VITALS: BP 108/78; BMI 28.4
[2017-06-21 14:01] LABS: ALBUMIN 3.8 g/dL (3.4-5.0); ANION GAP 13.6 mmol/L (8-16); BILIRUBIN - TOTAL 0.6 mg/dL (0.2-1.3); CALCIUM 9.3 mg/dL (8.5-10.1); CARBON DIOXIDE 26.3 mmol/L (21.0-32.0); CREATININE - SERUM 1.7 mg/dL (0.6-1.3); POTASSIUM - SERUM 3.9 mmol/L (3.5-5.1); PROTEIN - SERUM 7.4 g/dL (6.4-8.2)
[2017-06-21 16:51] VITALS: BP 108/75
[2017-06-21 18:27] VITALS: Ht 177.8 cm; Wt 90.0 kg
[2017-06-21 20:33] VITALS: BP 117/81
[2017-06-22 01:00] VITALS: BP 104/71
[2017-06-22 04:00] VITALS: BP 104/62
[2017-06-22 04:40] LABS: BASOPHILS 0.5 % (0-2); EOSINOPHILS 4.7 % (0-7); HEMATOCRIT 42.8 % (42.0-54.0); HEMOGLOBIN 15.1 g/dL (13.5-17.5); IMMATURE GRANULOCYTES 0.2 % (0-5); LYMPHOCYTES 35.9 % (15-50); MCH 31.4 pg (26.0-34.0); MCHC 35.3 g/dL (31.0-37.0); MEAN PLATELET VOLUME 9.9 fL (7.4-10.4); MONOCYTES 7.7 % (2-11); PLATELET COUNT 248 10x3/uL (130-400); RBC 4.81 10x6/uL (4.20-6.10); WBC 8.1 10x3/uL (4.8-10.8)
[2017-06-22 05:05] LABS: ALBUMIN 3.2 g/dL (3.4-5.0); ANION GAP 9.9 mmol/L (8-16); BILIRUBIN - TOTAL 0.5 mg/dL (0.2-1.3); CALCIUM 8.3 mg/dL (8.5-10.1); CARBON DIOXIDE 27.3 mmol/L (21.0-32.0); CREATININE - SERUM 1.5 mg/dL (0.6-1.3); POTASSIUM - SERUM 4.2 mmol/L (3.5-5.1); PROTEIN - SERUM 6.5 g/dL (6.4-8.2)
[2017-06-22 08:39] VITALS: BP 104/67
[2017-06-22 12:17] VITALS: BP 114/83
[2017-06-22 16:09] VITALS: BP 114/83
== END 2017-06-22 18:08 | disposition home or self-care (01) | DRG 394 ==
LOC: D.M2 12:56
PROVIDERS: Family Medicine
DX: K40.20 Bilateral inguinal hernia, without obstruction or gangrene, not specified as recurrent (principal); N17.9 Acute kidney failure, unspecified; E86.0 Dehydration; I10 Essential (primary) hypertension; Z86.73 Personal history of transient ischemic attack (TIA), and cerebral infarction without residual deficits

== ENCOUNTER 2017-07-20 09:55 | Day surgery (SDC) | payer BC, MEDICARE ==
[2017-07-19 11:19] LABS: HEMATOCRIT 44.6 % (42.0-54.0); MCH 31.6 pg (26.0-34.0); MCHC 35.9 g/dL (31.0-37.0); MEAN PLATELET VOLUME 9.6 fL (7.4-10.4); RBC 5.07 10x6/uL (4.20-6.10); RDW 13.2 % (11.5-14.5); WBC 6.5 10x3/uL (4.8-10.8)
[~2017-07-20] VITALS: Ht 177.8 cm; Wt 87.5 kg
--- NOTE | ~2017-07-20 | OP ---
PATIENT NAME: HOSSEIN CHAVEZ MEDICAL RECORD: [id number] :53 LOCATION:D.[facility] ADMISSION DATE: SURGEON: ELISSA CRUZ MD DATE OF OPERATION: 07/20/2017 PREOPERATIVE DIAGNOSIS: Bilateral inguinal hernias. POSTOPERATIVE DIAGNOSES: Bilateral indirect inguinal hernias, also bilateral cord lipomas. PROCEDURES: 1. Open bilateral non-incarcerated indirect inguinal hernia repairs with bilayer preperitoneal polypropylene mesh. 2. Excision of bilateral cord lipomas. SURGEON: Dr. Elissa Cruz. LOW ALTITUDE AIR DEFENSE OFFICER: MONI Verma. COMPLICATION: None. BLOOD LOSS: Minimal. ANESTHESIA: General. The risks, possible complications, and alternatives to procedure were explained to the patient. He elects to proceed. The discussion specifically included, but was not limited to, bleeding requiring emergency reoperation, infection, chronic pain. OPERATIVE COURSE: The patient was conveyed to the operating room electively on 07/20/2017. General anesthesia was induced by the anesthesia staff. The lower abdomen and genitals were sterilely prepped and draped. An incision was accomplished transversely and in the left groin. Sharp dissection was carried down through skin and subcutaneous tissue as well as Paula fascia. I then sharply cleaned overlying connective tissue from the underlying external oblique aponeurosis. The external oblique aponeurosis was then incised along the direction of its fibers. I dissected bluntly down through the internal oblique and transversus abdominis muscle layers. A preperitoneal pocket was fashioned bluntly. An indirect hernia was reduced in its entirety. There was a cord lipoma. I clamped across the vascular pedicle to the cord lipoma and cord lipoma was excised distal to the clamp. I then ligated the vascular pedicle with a 3-0 Vicryl suture. It was ligated highly with a 3-0 Vicryl and divided distal to this high ligation. There was no direct component. No femoral component. There was a cord lipoma. I clamped the vascular pedicle to the cord lipoma, which was quite large and divided the lipoma distal to the clamp. I then ligated the vascular pedicle with a 3-0 Vicryl suture. Two ovals of polypropylene mesh were then cut out and sewed one on top of the other with a running #1 Ethibond. The mesh was placed in the preperitoneal space. Once I was satisfied with placement of the mesh, I allowed the internal oblique and transversus abdominis muscle layers to close over the mesh and I sutured these muscles together with multiple interrupted horizontal mattress of 0 Ethibond incorporating a portion of the mesh with these sutures. OPERATIVE REPORT [id number] HOSSEIN CHAVEZ The external oblique aponeurosis was closed with running #1 Vicryls. Paula fascia was approximated with interrupted 3-0 Vicryls. The subdermis was approximated with interrupted 3-0 Vicryls. The skin was approximated with a running intracuticular 4-0 Vicryl. Attention was then turned to the right groin. A transverse incision was accomplished in the right groin. Sharp dissection was carried down through skin and subcutaneous tissue as well as Paula fascia. I then sharply cleaned overlying connective tissue from the underlying external oblique aponeurosis. The external oblique aponeurosis was then opened along the direction of its fibers. I dissected bluntly down through the internal oblique and transversus abdominis muscle layers. A preperitoneal pocket was fashioned bluntly. There was an indirect hernia, which was reduced in its entirety. There was direct component. No femoral component. Once I was satisfied with the preperitoneal dissection, 2 ovals of polypropylene mesh were then cut out and sutured one on top of the other with a running #1 Ethibond. The mesh was placed in the preperitoneal space. Once I was satisfied with placement of the mesh, I allowed the transverse abdominis and internal oblique muscles to come together and these were sutured together with multiple interrupted horizontal mattress of 0 Ethibond incorporating a portion of the mesh with these sutures. External oblique aponeurosis was then closed with running #1 Vicryls. After closure of the external oblique aponeurosis, Paula's fascia was approximated with interrupted 3-0 Vicryls. The subdermis was approximated with interrupted 3-0 Vicryls. The skin was approximated with a running intracuticular 4-0 Vicryl. Benzoin and Steri-Strips were applied. I had the polysomnography technologist induce a Valsalva. There was no persistent hernia on either side. Both testicles were descended. The patient was then extubated and conveyed to post-anesthesia care unit where he was in stable condition. He will be dismissed home with Demerol for pain. I will see him in the office in 2-3 weeks. TRANSINT:[id number] Voice Confirmation ID: [id number] DOCUMENT ID: [id number] ELISSA CRUZ MD at 1126 CC: SALVATORE CASTAÑEDA [id number] DICTATION DATE: 07/20/17 1602 DRIVING INSTRUCTOR: 07/20/17 1620 [facility] SDC 07/20/17 [place] [id number]
[2017-07-20 11:10] VITALS: BP 114/83; Ht 177.8 cm; Wt 87.5 kg
== END 2017-07-20 18:40 | disposition home or self-care (01) ==
LOC: D.OPS 09:55 → D.PAN 12:00 → D.OPS 12:00
PROVIDERS: Anesthesiology
DX: K40.20 Bilateral inguinal hernia, without obstruction or gangrene, not specified as recurrent (principal); D17.6 Benign lipomatous neoplasm of spermatic cord; Z01.812 Encounter for preprocedural laboratory examination

== ENCOUNTER 2017-08-21 20:09 | Observation (INO) | payer BC, MEDICARE ==
[~2017-08-21] VITALS: Ht 177.8 cm; Wt 88.6 kg
--- NOTE | ~2017-08-21 | OP ---
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 PROCEDURE: Lumbar laminectomy, medial facetectomy and foraminotomy with far lateral discectomy L4-L5 right with METRx retractor. DESCRIPTION OF TECHNIQUE: After induction of general endotracheal anesthesia, the patient was rolled prone on a Miguelito frame. The lumbar spine was prepped and draped in usual sterile fashion. Fluoroscopic x-ray and spinal needle localized the L4-L5 interspace on the right side. A stab incision was created with a #11 blade. A series of dilators were used to advance a METRx retractor to the L4-L5 interspace on the right side. Level was confirmed with fluoroscopic x-ray. A microscope and Midas Be drill were used to perform laminotomy, medial facetectomy and foraminotomy under microscopic illumination. Hypertrophied ligamentum flavum was removed with Cloward rongeurs. The L4 nerve root was followed around the L4 pedicle where it was compressed by a far lateral disc herniation. This was removed in a piecemeal fashion with pituitary rongeurs and curettes. Additional material was removed from the disc space. Following this, the L4 nerve root was decompressed well. Meticulous hemostasis was maintained throughout the wound and the wound was irrigated with copious amounts of Ancef irrigant solution. The fascia was closed with 2-0 Vicryl suture. The subdermal layer was closed with 3-0 Vicryl suture. The skin was closed with argelia. A sterile dressing was applied to the wound. The patient was awakened in good condition and taken to recovery. All counts were reported to be correct. Estimated blood loss was minimal. TRANSINT:[id number] Voice Confirmation ID: [id number] DOCUMENT ID: [id number] ILAN RICH MD at [id number] CC: [id number] DICTATION DATE: 09/10/17 1107 MEDICAL TECHNICAL WRITER: 09/10/17 1150 DIS IN 08/26/17 [facility] [address] [place] [address]
[2017-08-22 06:10] VITALS: BP 140/75; BMI 28.4
[2017-08-22 07:43] LABS: BASOPHILS 0.1 % (0-2); EOSINOPHILS 0 % (0-7); HEMATOCRIT 44.5 % (42.0-54.0); IMMATURE GRANULOCYTES 0.4 % (0-5); LYMPHOCYTES 11.4 % (15-50); MCH 31.6 pg (26.0-34.0); MCV 87.8 fL (80.0-100.0); MEAN PLATELET VOLUME 9.9 fL (7.4-10.4); MONOCYTES 0.5 % (2-11); NEUTROPHILS 87.6 % (40-80); PLATELET COUNT 239 10x3/uL (130-400); RBC 5.07 10x6/uL (4.20-6.10); RDW 13.1 % (11.5-14.5); WBC 8.3 10x3/uL (4.8-10.8)
[2017-08-22 08:06] LABS: ALBUMIN 3.9 g/dL (3.4-5.0); ANION GAP 14.6 mmol/L (8-16); BILIRUBIN - TOTAL 0.59 mg/dL (0.2-1.3); CALCIUM 8.9 mg/dL (8.5-10.1); CARBON DIOXIDE 25.6 mmol/L (21.0-32.0); CREATININE - SERUM 1.3 mg/dL (0.6-1.3); POTASSIUM - SERUM 4.2 mmol/L (3.5-5.1); PROTEIN - SERUM 7.7 g/dL (6.4-8.2)
[2017-08-22 08:21] VITALS: BP 130/82
[2017-08-22 11:52] VITALS: BP 122/91
[2017-08-22 12:20] VITALS: Ht 177.8 cm; Wt 88.6 kg
[2017-08-22 15:47] VITALS: BP 124/80
[2017-08-22 18:15] LABS: APPEARANCE CLEAR (CLEAR); COLOR DK YELLOW (YELLOW); NITRITE NEGATIVE (NEGATIVE); PROTEIN NEGATIVE (NEGATIVE)
[2017-08-22 18:16] LABS: BILIRUBIN NEGATIVE (NEGATIVE); GLUCOSE 100 mg/dL (NEGATIVE); KETONE SMALL mg/dL (NEGATIVE); UROBILINOGEN NORMAL (NORMAL)
[2017-08-22 18:19] LABS: BACTERIA FEW /hpf (NONE SEEN); EPITHELIAL CELLS 0-5 /hpf (0-5); WHITE CELLS - URINE 0-5 /hpf (0-5)
[2017-08-22 20:35] VITALS: BP 116/82
[2017-08-23 01:41] VITALS: BP 111/83
[2017-08-23 04:00] VITALS: BP 107/72
[2017-08-23 06:54] LABS: ALBUMIN 3.7 g/dL (3.4-5.0); ANION GAP 11.2 mmol/L (8-16); BILIRUBIN - TOTAL 0.61 mg/dL (0.2-1.3); CREATININE - SERUM 1.5 mg/dL (0.6-1.3); POTASSIUM - SERUM 4.2 mmol/L (3.5-5.1); PROTEIN - SERUM 6.8 g/dL (6.4-8.2)
[2017-08-23 09:22] VITALS: BP 122/75
[2017-08-23 15:43] VITALS: BP 122/98
[2017-08-23 16:24] VITALS: BP 124/83
[2017-08-23 21:58] VITALS: BP 131/86
[2017-08-24 00:56] VITALS: BP 110/70
[2017-08-24 05:43] LABS: ALBUMIN 3.6 g/dL (3.4-5.0); BILIRUBIN - TOTAL 0.4 mg/dL (0.2-1.3); CALCIUM 8.9 mg/dL (8.5-10.1); CARBON DIOXIDE 28.2 mmol/L (21.0-32.0); CREATININE - SERUM 1.6 mg/dL (0.6-1.3); POTASSIUM - SERUM 4.2 mmol/L (3.5-5.1); PROTEIN - SERUM 6.9 g/dL (6.4-8.2)
[2017-08-24 06:10] VITALS: BP 108/71
[2017-08-24 08:25] VITALS: BP 111/79
[2017-08-24 11:54] VITALS: BP 117/77
[2017-08-24 20:00] VITALS: BP 94/70
[2017-08-24 23:33] VITALS: BP 111/82
[2017-08-25 04:00] VITALS: BP 105/76
[2017-08-25 05:30] LABS: BASOPHILS 0 % (0-2); EOSINOPHILS 0 % (0-7); HEMATOCRIT 43.3 % (42.0-54.0); HEMOGLOBIN 15.3 g/dL (13.5-17.5); IMMATURE GRANULOCYTES 0.3 % (0-5); LYMPHOCYTES 7.4 % (15-50); MCH 31.4 pg (26.0-34.0); MCHC 35.3 g/dL (31.0-37.0); MCV 88.9 fL (80.0-100.0); MEAN PLATELET VOLUME 9.5 fL (7.4-10.4); MONOCYTES 2.8 % (2-11); NEUTROPHILS 89.5 % (40-80); PLATELET COUNT 232 10x3/uL (130-400); RBC 4.87 10x6/uL (4.20-6.10); RDW 12.9 % (11.5-14.5); WBC 14.1 10x3/uL (4.8-10.8)
[2017-08-25 05:49] LABS: ANION GAP 13.1 mmol/L (8-16); CARBON DIOXIDE 25.4 mmol/L (21.0-32.0); CREATININE - SERUM 1.6 mg/dL (0.6-1.3); POTASSIUM - SERUM 4.5 mmol/L (3.5-5.1)
[2017-08-25 07:45] VITALS: BP 119/79
[2017-08-25 11:42] VITALS: BP 112/84
[2017-08-25 15:46] VITALS: BP 115/77
[2017-08-25 21:40] VITALS: BP 125/79
[2017-08-26 06:14] VITALS: BP 108/75
[2017-08-26 06:30] LABS: BASOPHILS 0.2 % (0-2); HEMOGLOBIN 14.9 g/dL (13.5-17.5); IMMATURE GRANULOCYTES 0.5 % (0-5); LYMPHOCYTES 29.8 % (15-50); MCHC 36.3 g/dL (31.0-37.0); MCV 88.2 fL (80.0-100.0); MEAN PLATELET VOLUME 9.9 fL (7.4-10.4); MONOCYTES 5.3 % (2-11); NEUTROPHILS 63.2 % (40-80); PLATELET COUNT 236 10x3/uL (130-400); RBC 4.65 10x6/uL (4.20-6.10); RDW 13.1 % (11.5-14.5); WBC 11.6 10x3/uL (4.8-10.8)
[2017-08-26 06:33] VITALS: BP 98/67
[2017-08-26 06:49] LABS: ANION GAP 11.4 mmol/L (8-16); CALCIUM 8.7 mg/dL (8.5-10.1); CARBON DIOXIDE 25.6 mmol/L (21.0-32.0); CREATININE - SERUM 1.3 mg/dL (0.6-1.3)
[2017-08-26 07:40] VITALS: BP 110/81
== END 2017-08-26 15:03 | disposition home or self-care (01) ==
LOC: D.ER 20:09 → OBSVTIME 08-22 03:26 → D.EDHOLD 08-22 03:26 → D.M2 08-22 03:26
PROVIDERS: Family Medicine; Internal Medicine Nephrology
DX: M51.16 Intervertebral disc disorders with radiculopathy, lumbar region (principal); I10 Essential (primary) hypertension; E78.5 Hyperlipidemia, unspecified; K21.9 Gastro-esophageal reflux disease without esophagitis; K57.90 Diverticulosis of intestine, part unspecified, without perforation or abscess without bleeding; K59.00 Constipation, unspecified; N40.0 Benign prostatic hyperplasia without lower urinary tract symptoms; Z86.73 Personal history of transient ischemic attack (TIA), and cerebral infarction without residual deficits; F41.9 Anxiety disorder, unspecified

== ENCOUNTER → 2017-09-07 16:33 | Outpatient (CLI) | payer BC, MEDICARE ==
[2017-08-22 12:20] VITALS: BMI 28.4
== END | disposition home or self-care (01) ==
LOC: D.US 16:33
DX: R22.41 Localized swelling, mass and lump, right lower limb (principal)

== ENCOUNTER 2018-07-03 15:34 | Inpatient (IN) | payer BC, MEDICARE ==
[~2018-07-03] VITALS: Ht 177.8 cm; Wt 90.5 kg
--- NOTE | ~2018-07-03 | HEMODYNAMI ---
PATIENT:HOSSEIN CHAVEZ MEDICAL RECORD: [id number] : 53 LOCATION:[facility] D.2115 ADMISSION DATE: 07/03/18 Generatedon:07/04/201812:41 Patient name: HOSSEIN CHAVEZ Patient #: [id number] SSN: : 1955 Date of study: 07/04/2018 Page: Of Hemodynamic Procedure Report Patient Data Patient Demographics Procedure consent was obtained First Name: HOSSEIN Gender: Male Last Name: KATHY : 1955 [facility] Initial: JONNY Age: 62 year(s) Patient #: [id number] Race: Unknown Additional ID: [id number] Contact details [address]: [address] [place] [address] State: [place] City: [place] Zip code: [address] Past Medical History Allergies Allergen Reaction Date Comments Reported Morphine 07/04/2018 Other allergy 07/04/2018 phenergan, erythromycin, hydrocodone, keflex, doxycycline Admission Admission Data Admission Date: 07/03/2018 Admission Time: 18:59 Room #: 2115 Procedure Procedure Types Cath Procedure Diagnostic Procedure [facility] w/Coronaries Sedation Charges Moderate Sedation up to 15 minutes PCI Procedure Coronary Stent Coronary Stent Initial Procedure Description Procedure Date Procedure Date: 07/04/2018 Procedure Start Time: 12:23 Procedure End Time: 12:40 Procedure Staff Name Function Jose Barnard MD Performing Physician Edyta Christian RT Monitor Cara Horton RN Nurse Dariusz Jay RT Scrub Procedure Data Cath Procedure Fluoroscopy Diagnostic fluoroscopy Total fluoroscopy Time: 2.3 time: 2.3 min min Diagnostic fluoroscopy Total fluoroscopy dose: 282 dose: 282 mGy mGy Contrast Material Contrast Material Type Amount (ml) Isovue 300 94 Entry Location Entry Primary Successful Side Size Upsize Upsize Entry Closure Succes sful Closure Location (Fr) 1 (Fr) 2 (Fr) Remarks Device Remarks Femoral Right 5 Fr 6 Fr Exoseal artery Short Estimated blood loss: 10 ml Diagnostic catheters Device Type Used For End Catheter Placement MULTIPACK JL 4.0 5Fr Left Coronary catheter Angiography MULTIPACK 3DRC 5Fr Right Coronary catheter Angiography MULTIPACK Pigtail 5 Fr LV Angiography catheter Procedure Complications No complications Procedure Medications Medication Administration Route Dosage Oxygen etCO2 Nasal cannula 2 l/min Lidocaine 2% added to field 20 Heparin Flush Bag added to field 2 bags (1000units/500ml NS) 0.9% NaCl I.V. 100 ml/hr Zofran I.V. 4 mg Versed I.V. 2 mg Fentanyl I.V. 50 mcg Versed I.V. 2 mg Fentanyl I.V. 50 mcg Heparin Bolus I.V. 4000 units Integrilin (Bolus I.V. 7.9 ml 2mg/ml) Versed I.V. 2 mg Plavix P.O. 600 mg Hemodynamics Rest Heart Rate: 72 (bpm) Pressure Samples Time Site Value (mmHg) Purpose Heart Use Rate(bpm) 12:29 LV 113/23,24 EDP 68 Gradients Valve Time Site Site Mean SEP/DFP Peak To Heart Use 1 2 (mmHg) (sec/min) Peak Rate (mmHg) (bpm) Aortic 12:29 LV AO 69 Snapshots Pre Cath Intra NCS Post Cath Vital Signs Time Heart Resp SPO2 etCO2 NIBP (mmHg) Rhythm Pain Sedation Rate (ipm) (%) (mmHg) Status Level (bpm) 12:17:16 72 10 95 27.7 120/80(95) NSR 0 (11) 10(A) , No pain 12:21:26 69 11 95 27.7 118/75(96) NSR 0 (11) 10(A) , No pain 12:25:36 63 20 94 30 121/70(86) NSR 0 (11) 10(A) , No pain 12:29:46 69 15 93 18 117/74(93) NSR 0 (11) 9(A) , No pain 12:33:56 70 13 95 14.2 111/71(87) NSR 0 (11) 9(A) , No pain 12:38:04 72 14 97 27 116/74(100) NSR 0 (11) 10(A) , No pain Medications Time Medication Route Dose Verified Delivered Reason Notes Effectiveness by by 12:14:24 Oxygen etCO2 2 Jose Marroquin used for Nasal l/min St Felipe Horton RN procedure cannula 12:14:31 Lidocaine 2% added 20ml Jose Garcia for local to vial [facility] anesthetic field MD LUCIO 12:14:37 Heparin Flush added 2 Jose Garcia used for Bag to bags [facility] procedure (1000units/500ml field MD LUCIO NS) 12:14:45 0.9% NaCl I.V. 100 Jose Marroquin Per physician ml/hr St Felipe Horton RN, MD 12:19:12 Zofran I.V. 4 mg Jose Marroquin Per physician [facility] Felipe Horton RN, MD 12:20:20 Versed I.V. 2 mg Jose Marroquin for sedation St Felipe Horton RN, MD 12:20:28 Fentanyl I.V. 50 Jose Marroquin for sedation mcg St Felipe Horton RN, MD 12:27:02 Versed I.V. 2 mg Jose Marroquin for sedation St Felipe Horton RN, MD 12:27:05 Fentanyl I.V. 50 Jose Marroquin for sedation mcg St Felipe Horton RN, MD 12:31:11 Heparin Bolus I.V. 4000 Jose Marroquin for units St Felipe Horton RN anticoagulation 12:33:23 Integrilin I.V. 7.9 Jose Marroquin for (Bolus 2mg/ml) ml St Felipe Horton RN antiplatelet therapy 12:35:51 Versed I.V. 2 mg Jose Marroquin for sedation St Felipe Horton RN, MD 12:39:17 Plavix P.O. 600 Jose Marroquin for mg St Felipe Horton RN antiplatelet therapy Procedure Log Time Note 11:30:34 Time tracking: Regular hours (M-F 7:00 - 5:00) 11:30:38 Plan of Care:Hemodynamics will remain stable., Cardiac rhythm will remain stable., Comfort level will be maintained., Respiratory function will remain adequate., Patient/ family verbilizes understanding of procedure., Procedure tolerated without complication., Recovers from procedure without complications.. 11:48:39 Cara Horton RN sent for patient. Start room use. 11:54:07 Patient received from Med II to CCL 3 Alert and oriented. Tansferred to table in Supine position. 11:54:08 Warm blankets applied, and barrera hugger turned on for patient comfort. 11:54:08 Correct patient and procedure confirmed by team. 11:54:09 Signed procedure consent form obtained from patient. 11:54:10 ECG and BP/O2 sat monitors applied to patient. 11:54:12 Pre-procedure instructions explained to patient. 11:54:12 Pre-op teaching completed and patient verbalized understanding. 11:54:13 Family in patients room. 11:54:15 Patient NPO since Breakfast. 12:02:39 Patient allergic to Morphine 12:04:53 Patient allergic to Other allergyphenergan, erythromycin, hydrocodone, keflex, doxycycline 12:04:58 Is the patient allergic to Iodine/contrast media? No. 12:04:59 Is patient on blood thinner?No 12:05:00 Patient diabetic? No. 12:05:03 Previous problem with sedation/anesthesia? No ? 12:05:04 Snore? Yes 12:05:05 Sleep apnea? No 12:05:06 Deviated septum? No 12:05:06 Opens mouth fully? Yes 12:05:07 Sticks out tongue? Yes 12:05:08 Airway obstruction? No ? 12:05:10 Dentures? No ? 12:05:13 Pre procedure: right dorsailis pedis pulse 2+ Normal; easily identifiable; not easily obliterated 12:05:16 Modified Roscoe's test Ulnar > 7 seconds. 12:05:19 Patient pain scale 0/10 ?. 12:05:30 IV patent on arrival in left forearm with 0.9% NaCl at [facility]. 12:05:33 Lab results completed and on chart. 12:05:37 Right groin area was prepped with chlora-prep and draped in sterile fashion 12:05:37 Alarms reviewed by R. N. 12:05:38 Sharps counted by scrub and verified by R.N. 12:05:50 Use device set Femoral Dx 12:05:51 ACIST Syringe (14681) opened to sterile field. 12:05:52 Bag Decanter (2002S) opened to sterile field. 12:05:52 Medline Cath Pack ([id number]) opened to sterile field. 12:05:53 DIAGNOSTIC WIRE .035 260cm J wire (476907) opened to sterile field. 12:05:54 ACIST Hand Control (80206) opened to sterile field. 12:05:55 ACIST Manifold (96123) opened to sterile field. 12:05:55 DIAGNOSTIC Multipack 5Fr catheter set (OU9706) opened to sterile field. 12:05:56 SHEATH 5FR Enochs (VIR339) opened to sterile field. 12:06:00 Tegaderm 4 x 4 (1626W) opened to sterile field. 12:06:37 IV Extension Set opened to sterile field. 12:09:04 Baseline sample Acquired. 12:14:24 Oxygen 2 l/min etCO2 Nasal cannula was administered by Cara Horton RN; used for procedure; 12:14:31 Lidocaine 2% 20ml vial added to field was administered by Jose Barnard MD; for local anesthetic; 12:14:37 Heparin Flush Bag (1000units/500ml NS) 2 bags added to field was administered by Jose Barnard MD; used for procedure; 12:14:45 0.9% NaCl 100 ml/hr I.V. was administered by Cara Horton RN; Per physician; 12:16:11 Vital chart was started 12:16:11 Full Disclosure recording started 12:16:14 Rhythm: sinus rhythm 12:16:39 H&P Date Dictated: 07/04/2018 Within 30 days and on chart.. 12:19:04 Final Timeout: patient, procedure, and site verified with staff and physician. All members of the team are in agreement. 12:19:06 Right groin site verified by team. 12:19:09 Maximum allowable Isovue 300 dose 265ml. Physician notified. (300ml for normal creatinines. For patients with creatinine of 1.7 or higher multiply weight(kg) x 5 divided by creatinine.) 12:19:12 Zofran 4 mg I.V. was administered by Cara Horton RN; Per physician; 12:20:01 Fire Safety Assessment: A--An alcohol-based skin anteseptic being used preoperatively., C--Open oxygen or nitrous oxide is being used., D--An ESU, laser, or fiber-optic light is being used. 12:20:04 Physical assessment completed. ASA score P 2 - A patient with mild systemic disease as per Jose Barnard MD. 12:20:08 Sedation plan: IV Moderate Sedation Medication:Versed, Fentanyl 12:20:20 Versed 2 mg I.V. was administered by Cara Horton RN; for sedation; 12:20:28 Fentanyl 50 mcg I.V. was administered by Cara Horton RN; for sedation; 12:22:40 Zero performed for pressure channel P1 12:23:45 Procedure started. 12:23:50 Local anesthetic to right femoral artery with Lidocaine 2% by Jose Barnard MD.INITIAL ACCESS ONLY 12:24:31 A 5 Fr sheath was inserted into the Right Femoral artery 12:25:13 A MULTIPACK JL 4.0 5Fr catheter was advanced over the wire and used for Left Coronary Angiography. 12:26:41 Catheter removed. 12:26:59 A MULTIPACK 3DRC 5Fr catheter was advanced over the wire and used for Right Coronary Angiography. 12:27:02 Versed 2 mg I.V. was administered by Cara Horton RN; for sedation; 12:27:05 Fentanyl 50 mcg I.V. was administered by Cara Horton RN; for sedation; 12::[address] TALAVERA PCI 12:27:32 SHEATH 6FR Enochs (UTS271) opened to sterile field. 12:27:34 INFLATOR Merit BasixCompak (HB4432) opened to sterile field. 12:27:36 WHISPER 300cm guide wire ([id number]) opened to sterile field. 12:27:48 Catheter removed. 12:27:56 A MULTIPACK Pigtail 5 Fr catheter was advanced over the wire and used for LV Angiography. 12:29:28 LV gram done using ALBERTO 12:29:33 EF : 50 % 12:29:34 LV hemodynamics recorded. 12:29:38 Injector settings: Ml/sec: 10, Volume: 20, 12:29:39 Catheter removed. 12:29:46 Sheath upsized to a 6 Fr Short. 12:30:26 GUIDE 6FR JL 4.0 catheter ([id number]) opened to sterile field. 12:30:39 6 Fr JL 4.0 guide catheter was inserted over the wire 12:31:11 Heparin Bolus 4000 units I.V. was administered by Cara Horton RN; for anticoagulation; 12:33:19 WHISPER wire advanced. 12:33:23 Integrilin (Bolus 2mg/ml) 7.9 ml I.V. was administered by Cara Horton RN; for antiplatelet therapy; 12:35:24 Place stent Inflation Number: 1 A SOLO OTW 3.5 x 15 stent ([id number]) was prepped and advanced across the Mid LAD. The stent was deployed at 12 MITCHELL for 0:22 (min:sec). 12:35:42 Stent catheter was removed intact over wire. 12:35:43 Wire removed. 12:35:43 Guide catheter removed. 12:35:51 Versed 2 mg I.V. was administered by Cara Horton RN; for sedation; 12:35:51 Sheath removed intact; hemostasis achieved with Exoseal to the Right Femoral artery. 12:35:53 Procedure ended.(Physican Out) 12:36:33 Fluoroscopy time 02.30 minutes. 12:36:39 Fluoroscopy dose: 282 mGy 12:36:39 Flurop Dose total: 282 12:36:43 Contrast amount:Isovue 300 94ml. 12:36:45 Sharps counted by scrub and verified by R.N. 12:36:46 Insertion/operative site no bleeding no hematoma. 12:36:48 Post-op/insertion site Right Femoral artery dressed using a 4 x 4 and Tegaderm. 12:36:51 Post right femoral artery:stable, clean and dry 12:36:52 Post Procedure Pulses reassessed and unchanged 12:36:56 Post-procedure physical assessment completed. ASA score P 2 - A patient with mild systemic disease as per Jose Barnard MD. 12:36:58 Post procedure rhythm: unchanged. 12:37:01 Estimated blood loss: 10 ml 12:37:02 Post procedure instruction explained to patient.Patient verbalizes understanding. 12:37:02 Patient needs reinforcement of post procedure teaching. 12:37:08 Procedure Complication : No complications 12:37:45 Procedure type changed to Cath procedure, Diagnostic procedure, LHC, LHC w/Coronaries, Sedation Charges, Moderate Sedation up to 15 minutes, PCI procedure, Coronary Stent, Coronary Stent Initial 12:37:54 EXOSEAL 6Fr (EX600) opened to sterile field. 12:38:14 Procedure and supply charges have been captured, reviewed, submitted and are correct. 12:38:16 See physician's report for complete and final results. 12:39:17 Plavix 600 mg P.O. was administered by Cara Horton RN; for antiplatelet therapy; 12:40:01 Vital chart was stopped 12:40:05 Report given to PCU. 12:40:11 Patient transfered to PCU with Bed. 12:40:22 Procedure ended. 12:40:22 Full Disclosure recording stopped 12:40:27 End room use (Document Last) Intervention Summary Intervention Notes Time ActionType Lesion and Equipment Action# Pressure Duration Attributes Used 12:35:24 Place stent Mid LAD SOLO OTW 3.5 1 12 00:22 x 15 stent ([id number]) Device Usage Item Name Manufacture Quantity Catalog Hospital Part Current Mini mal Lot# / Number Charge Number Stock Stock Serial# Code ACIST Syringe Acist 1 21039 029682 196167 260339 20 (93844) Medical Systems Inc Bag Decanter Microtek 1 [id number] 68721 022937 5 () Medical Inc. Medline Cath Medline 1 [id number] 325591 30722 226998 5 Pack ([id number]) DIAGNOSTIC St Sathya 1 415473 656888 728505 726069 30 WIRE .035 260cm J wire (840846) ACIST Hand Acist 1 87581 951326 596533 895581 5 Control Medical (85516) Systems Inc ACIST Acist 1 47494 997662 469801 850415 5 Manifold Medical (52314) Systems Inc DIAGNOSTIC Cardinal 1 SH5710 253028 70004 967866 30 Multipack 5Fr Health catheter set (BL8360) SHEATH 5FR Terumo 1 JYU507 415290 629559 296766 5 Enochs (MSR501) Tegaderm 4 x 3M 1 1626W 387741 197380 735946 5 4 (1626W) IV Extension Hospira 1 03700-00 924818 88265 285397 5 Set MULTIPACK JL Cardinal 1 980140 5 4.0 5Fr Health catheter MULTIPACK Cardinal 1 114102 5 3DRC 5Fr Health catheter SHEATH 6FR Terumo 1 IMH878 262720 717746 048353 40 Enochs (DXS245) INFLATOR Merit 1 MY8205 659241 240385 383163 15 [facility] Medical BasixCompak (CZ4141) WHISPER 300cm Peck 1 [id number] 111627 315606 610988 5 guide wire Vascular ([id number]) MULTIPACK Cardinal 1 456993 5 Pigtail 5 Fr Health catheter GUIDE 6FR JL Medtronic 1 [id number] 379027 54472 010445 1 4.0 catheter (KG6YM32) SOLO OTW 3.5 Medtronic 1 [id number] 371271 6196819 707789 5 [id number] x 15 stent ([id number]) EXOSEAL 6Fr Cardinal 1 EX600 113501 287755 394532 10 (EX600) Health Signature Audit Sultana Stage Time Signature Unsigned Intra-Procedure 07/04/2018 Edyta 12:41:01 PM Counts RT(R) Signatures Monitor : Edyta Signature : Counts RT Date : Time : [place] [id number] [facility] [place] [address]
[2018-07-03] MEDS ORDERED: LISINOPRIL-HCT1 EAC4 PO (15:45)
[2018-07-03] MEDS ORDERED: COREG 3.1253.125 MG PO (15:46)
[2018-07-03 16:18] LABS: BASOPHILS 0.5 % (0-2); EOSINOPHILS 2.4 % (0-7); HEMATOCRIT 41.6 % (42.0-54.0); HEMOGLOBIN 14.9 g/dL (13.5-17.5); IMMATURE GRANULOCYTES 0.4 % (0-5); LYMPHOCYTES 39.6 % (15-50); MCH 31.9 pg (26.0-34.0); MCHC 35.8 g/dL (31.0-37.0); MCV 89.1 fL (80.0-100.0); MEAN PLATELET VOLUME 9.9 fL (7.4-10.4); NEUTROPHILS 49.1 % (40-80); PLATELET COUNT 239 10x3/uL (130-400); RBC 4.67 10x6/uL (4.20-6.10); RDW 13.1 % (11.5-14.5)
[2018-07-03 16:26] LABS: APTT 26.4 SECONDS (22.8-39.4); INR 1.13 (0.85-1.17)
[2018-07-03 16:38] LABS: ALBUMIN 3.5 g/dL (3.4-5.0); ALKALINE PHOSPHATASE 51 U/L (46-116); ALT (SGPT) 61 U/L (10-68); BILIRUBIN - TOTAL 0.38 mg/dL (0.2-1.3); CALC OSMOLALITY 271 mosm/kg (275-300); CALCIUM 8.9 mg/dL (8.5-10.1); CARBON DIOXIDE 27.5 mmol/L (21.0-32.0); CHLORIDE - SERUM 100 mmol/L (98-107); CREATININE - SERUM 1.9 mg/dL (0.6-1.3); GLUCOSE 154 mg/dL (74-106); POTASSIUM - SERUM 3.6 mmol/L (3.5-5.1); PROTEIN - SERUM 6.9 g/dL (6.4-8.2); SODIUM 132 mmol/L (136-145); UREA NITROGEN 25 mg/dL (7-18); eGFR NON AFRICAN AMERICAN 38 mL/min (90-120)
[2018-07-03 16:47] LABS: CKMB 4.6 U/L (0.0-3.6); CREATINE KINASE 212 UL (21-232); MAGNESIUM - SERUM 1.5 mg/dL (1.8-2.4); TROPONIN-I < 0.017 ng/mL (0.000-0.060)
[2018-07-03 17:04] VITALS: BP 114/79
[2018-07-03 17:13] VITALS: BP 100/67
--- NOTE | 2018-07-03 17:13 | NUR ---
PT REPORTS CHEST PRESSURE RESOLVED. ONLY C/O IS MILES
[2018-07-03 17:52] VITALS: BP 95/65
[2018-07-03 18:34] VITALS: BP 105/68
--- NOTE | 2018-07-03 19:18 | NUR ---
REPORT CALLED TO DEVAUGHN ANNE BY SBAR FORMAT
[2018-07-03 19:21] LABS: CREATINE KINASE 187 UL (21-232)
[2018-07-03 19:22] LABS: TROPONIN-I < 0.017 ng/mL (0.000-0.060)
[2018-07-03 21:48] VITALS: BP 125/77; Ht 177.8 cm; Wt 90.5 kg
[2018-07-04 00:03] VITALS: BP 106/72
[2018-07-04 02:01] LABS: CKMB 3.3 U/L (0.0-3.6); CREATINE KINASE 157 UL (21-232); TROPONIN-I < 0.017 ng/mL (0.000-0.060)
[2018-07-04 04:00] VITALS: BP 115/68
[2018-07-04 07:29] LABS: BASOPHILS 0.4 % (0-2); EOSINOPHILS 2.4 % (0-7); HEMATOCRIT 38.9 % (42.0-54.0); HEMOGLOBIN 13.8 g/dL (13.5-17.5); IMMATURE GRANULOCYTES 0.6 % (0-5); LYMPHOCYTES 42.7 % (15-50); MCH 31.6 pg (26.0-34.0); MCHC 35.5 g/dL (31.0-37.0); MEAN PLATELET VOLUME 9.8 fL (7.4-10.4); NEUTROPHILS 47.9 % (40-80); PLATELET COUNT 202 10x3/uL (130-400); RBC 4.37 10x6/uL (4.20-6.10); RDW 13.3 % (11.5-14.5)
[2018-07-04 07:57] LABS: ALKALINE PHOSPHATASE 44 U/L (46-116); BILIRUBIN - TOTAL 0.37 mg/dL (0.2-1.3); CALC OSMOLALITY 281 mosm/kg (275-300); CALCIUM 8.1 mg/dL (8.5-10.1); CARBON DIOXIDE 23.1 mmol/L (21.0-32.0); CHLORIDE - SERUM 107 mmol/L (98-107); CREATINE KINASE 134 UL (21-232); CREATININE - SERUM 1.7 mg/dL (0.6-1.3); GLUCOSE 124 mg/dL (74-106); PROTEIN - SERUM 6.1 g/dL (6.4-8.2); SODIUM 139 mmol/L (136-145); UREA NITROGEN 20 mg/dL (7-18); eGFR NON AFRICAN AMERICAN 43 mL/min (90-120)
[2018-07-04 07:58] LABS: ALT (SGPT) 45 U/L (10-68); POTASSIUM - SERUM 4.3 mmol/L (3.5-5.1); TROPONIN-I < 0.017 ng/mL (0.000-0.060)
[2018-07-04 09:37] VITALS: BP 130/58
--- NOTE | 2018-07-04 11:54 | NUR ---
PRE-OPS GIVEN. TO GYMNASTIC COACH BY BED.
[2018-07-04 12:25] VITALS: BP 103/70
--- NOTE | 2018-07-04 13:01 | NUR ---
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 VS WNL. RIGHT GROIN STABLE WITHOUT BLEEDING OR HEMOTOMA NOTED. WILL MONITOR.
[2018-07-04] MEDS ORDERED: PLAVIX75 MG PO (16:51)
--- NOTE | 2018-07-04 17:10 | NUR ---
BED REST UP. GROIN STABLE.
--- NOTE | 2018-07-04 17:31 | NUR ---
IV AND TELEMETRY DCD. DC PLANS GIVEN. UNDERSTANDING VOICED. ESCORTED TO CAR BY W/C.
--- NOTE | 2018-07-05 08:29 | MORECARE ---
CASE MANAGEMENT DISCHARGE SUMMARY PATIENT: HOSSEIN CHAVEZ UNIT: [id number] ADM DATE: 07/03/18 AGE: 62 : 54 SEX: M ROOM/BED: D.7253 AUTHOR: ANDREA DUNCAN PHYSICIAN: REFERRING PHYSICIAN: ILAN BERGMAN MD DATE OF SERVICE: 07/05/18 Discharge Plan Patient Name: HOSSEIN CHAVEZ [facility] [facility] 1955 Planned Disposition: Home Anticipated Discharge Date: 07/04/18 Discharge Date: 07/04/2018 Expected LOS: 1 Initial Reviewer: [email or web address] Initial Review Date: 07/05/2018 Generated: 07/05/18 9:28 am Patient Name: HOSSEIN CHAVEZ Page [id number] at 0829 All edits/amendments must be made on the electronic document DICTATION DATE: 07/05/18827 SEEDLING PULLER: DUNCAN 07/05/18827 RPT#: [id number] DC DATE:07/04/18 STATUS: DIS IN [facility] [address] [place] [address] END OF REPORT
--- NOTE | 2018-07-08 10:06 | CN ---
PATIENT NAME:HOSSEIN CHAVEZ MEDICAL RECORD: [id number] : 53 LOCATION:D. D.2115 ADMIT DATE: 07/03/18 ACCOUNT: [id number] CONSULTING PHYSICIAN: JOSE SHI MD REFERRING PHYSICIAN: ILAN BERGMAN MD DATE OF CONSULTATION: 07/04/2018 HISTORY OF PRESENT ILLNESS: A 62-year-old gentleman with no known history of coronary artery disease, has a history of hypertension, has been having history of hypertension, admitted with chest tightness, pressure, and near syncope. He was actually taking his to the walk-in clinic; however, had relief with nitroglycerin. No family history of coronary artery disease. Has noticed increased dyspnea on exertion in the last few days as well. We are asked to see him concerning his cardiovascular status. PAST MEDICAL HISTORY: Includes history of hypertension. ALLERGIES: MORPHINE, HYDROMORPHONE, CELEXA. 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 Easily takes care of all his ADLs. REVIEW OF SYSTEMS: The patient reports easy bruising but reports no swollen glands. The patient reports no fever, no night sweats, no significant weight gain, no significant weight loss. No significant exercise tolerance. The patient reports no dry eyes, no irritation, no vision change. Patient reports no difficulty hearing and no ear pain. Patient reports no frequent nose bleeds or nose and sinus problems. Patient reports on arm pain on exertion. No shortness of breath while lying down. No history of heart murmur. Patient reports no cough, no wheezing or coughing up blood. Patient reports no abdominal pain, no vomiting. Normal appetite. No diarrhea and not vomiting blood. No nausea and no constipation. Patient reports no incontinence. No difficulty urinating. No hematuria. No increased frequency. Patient reports no muscle aches. No weakness, no arthralgias, no back pain. No swelling of the extremities. Patient reports no abnormal mole, no jaundice, no rashes. Reports no loss of consciousness. No weakness and no numbness. No seizures, dizziness, or headaches. The patient reports no depression, no sleep disturbance, feeling safe in a relationship and no alcohol abuse. Patient reports on fatigue. Reports no runny nose or sinus pressure. No itching, no hives, and no frequent sneezing. PHYSICAL EXAMINATION: GENERAL: Pleasant gentleman in no acute distress. VITAL SIGNS: Blood pressure 115/68, pulse 54 and regular. HEENT: Normocephalic, atraumatic. NECK: No bruits noted. HEART: Regular, II/ systolic ejection murmur. LUNGS: Good air excursion. ABDOMEN: Soft, nontender. EXTREMITIES: Pulses 2+. No edema. DIAGNOSTIC DATA: ECG is nonspecific ST-T changes. IMPRESSION: Acute coronary syndrome. CONSULT REPORT [id number] HOSSEIN CHAVEZ PLAN: For diagnostic angiography, intervention based on the above. TRANSINT:[id number] Voice Confirmation ID: [id number] DOCUMENT ID: [id number] JOSE SHI MD at 1006 CC: [id number] DICTATION DATE: 07/04/1849 BACK SEWER: 07/04/18 1216 DIS IN 07/04/18 [facility] [address] [place] [address]
--- NOTE | 2018-07-08 10:07 | OP ---
PATIENT NAME: HOSSEIN CHAVEZ MEDICAL RECORD: [id number] :53 LOCATION:D.M2 D.2115 ADMISSION DATE:07/03/18 SURGEON: JOSE SHI MD DATE OF OPERATION: 07/04/2018 PROCEDURE: Left heart catheterization, selective coronary angiography, right femoral artery approach. CATHETERS: A 5-Botswanan sheath, 5/4 left and right Ramiro, 5/4 pig. The procedure was well tolerated. We proceeded immediately to do PTCA stenting of the LAD. FINDINGS: Left ventriculography in 30-degree ALBERTO view: Normal wall motion, normal systolic function. CORONARY ANATOMY: LEFT MAIN: Left main is free of disease. LAD: Has 80% hazy stenosis right at the takeoff of first septal. CIRCUMFLEX: Codominant system, free of disease. RIGHT CORONARY ARTERY: Again, codominant, free of disease. IMPRESSION AND PLAN: Intervention LAD momentarily. DESCRIPTION OF PROCEDURE: A 5-Botswanan sheath was exchanged for a 6-Botswanan sheath. A JL4 guiding catheter provided good guide catheter support. This was followed by a 300-cm Whisper wire, which was placed across the tightly occluded LAD in this portion of vessel. Stent deployed was a 3.5 x 15 mm Norphlet drug-eluting stent up to 12 atmospheres at 45 seconds. Final angiography shows excellent resolution of an 80% stenosis, no significant residual. ENZO flow was 3 throughout the procedure. Heparin and Integrilin were used during the case. Sheath was closed with ExoSeal device. TRANSINT:[id number] Voice Confirmation ID: [id number] DOCUMENT ID: [id number] JOSE SHI MD at 1007 CC: [id number] DICTATION DATE: 07/04/18 1242 OCCUPATIONAL HEALTH PROFESSIONAL: 07/04/18 1451 DIS IN 07/04/18 [facility] [address] [facility], [facility]
== END 2018-07-04 17:56 | disposition home or self-care (01) | DRG 246 ==
LOC: D.ER 15:34 → D.M2 18:59
PROVIDERS: Family Medicine; Internal Medicine Interventional Cardiology; ADMIT Emergency Medicine; ATTEND Emergency Medicine
PROC: B2111ZZ Fluoroscopy of Multiple Coronary Arteries using Low Osmolar Contrast (ICD-10-PCS; 2018-07-04)
PROC: B2151ZZ Fluoroscopy of Left Heart using Low Osmolar Contrast (ICD-10-PCS; 2018-07-04)
PROC: 027034Z Dilation of Coronary Artery, One Artery with Drug-eluting Intraluminal Device, Percutaneous Approach (ICD-10-PCS; principal; 2018-07-04 11:48)
PROC: 4A023N7 Measurement of Cardiac Sampling and Pressure, Left Heart, Percutaneous Approach (ICD-10-PCS; 2018-07-04 11:48)
DX: I24.9 Acute ischemic heart disease, unspecified (principal); J18.9 Pneumonia, unspecified organism; I25.119 Atherosclerotic heart disease of native coronary artery with unspecified angina pectoris; I10 Essential (primary) hypertension; N40.0 Benign prostatic hyperplasia without lower urinary tract symptoms; Z87.891 Personal history of nicotine dependence; Z86.73 Personal history of transient ischemic attack (TIA), and cerebral infarction without residual deficits

== ENCOUNTER 2018-12-31 01:03 | Inpatient (IN) | payer BC, MEDICARE ==
[~2018-12-31] VITALS: Ht 177.8 cm; Wt 93.2 kg
[~2018-12-31 01:03] MED LIST changes: +COREG 3.1253.125 MG PO; +LISINOPRIL-HCT1 EAC4 PO; +PLAVIX75 MG PO
[2018-12-31] MEDS ORDERED: MONODOX100 MG (01:17)
[2018-12-31] MEDS ORDERED: ALBUTEROL SULF8.5 GM INH (01:18)
[2018-12-31 01:35] LABS: BASOPHILS 0.6 % (0-2); EOSINOPHILS 9.4 % (0-7); HEMATOCRIT 44.8 % (42.0-54.0); HEMOGLOBIN 15.7 g/dL (13.5-17.5); IMMATURE GRANULOCYTES 0.4 % (0-5); LYMPHOCYTES 34.1 % (15-50); MCH 32.1 pg (26.0-34.0); MCV 91.6 fL (80.0-100.0); MEAN PLATELET VOLUME 9.5 fL (7.4-10.4); MONOCYTES 6.4 % (2-11); NEUTROPHILS 49.1 % (40-80); PLATELET COUNT 259 10x3/uL (130-400); RBC 4.89 10x6/uL (4.20-6.10); RDW 13.1 % (11.5-14.5)
[2018-12-31 01:44] LABS: CALC OSMOLALITY 281 mosm/kg (275-300); CALCIUM 8.7 mg/dL (8.5-10.1); CARBON DIOXIDE 23.5 mmol/L (21.0-32.0); CHLORIDE - SERUM 104 mmol/L (98-107); CREATININE - SERUM 1.4 mg/dL (0.6-1.3); GLUCOSE 163 mg/dL (74-106); POTASSIUM - SERUM 3.7 mmol/L (3.5-5.1); SODIUM 139 mmol/L (136-145); UREA NITROGEN 13 mg/dL (7-18); eGFR NON AFRICAN AMERICAN 54 mL/min (90-120)
[2018-12-31 01:47] LABS: APTT 29.9 SECONDS (22.8-39.4); INR 1.12 (0.85-1.17); PROTIME 13.9 SECONDS (11.6-15.0)
[2018-12-31 02:03] LABS: ALBUMIN 3.7 g/dL (3.4-5.0); ALKALINE PHOSPHATASE 65 U/L (46-116); ALT (SGPT) 63 U/L (10-68); BILIRUBIN - TOTAL 0.33 mg/dL (0.2-1.3); CKMB 6.8 U/L (0.0-3.6); CREATINE KINASE 472 UL (21-232); PRO BNP 35 pg/mL (0-125); PROTEIN - SERUM 7.2 g/dL (6.4-8.2)
[2018-12-31 02:08] LABS: TROPONIN-I < 0.017 ng/mL (0.000-0.060)
[2018-12-31 02:30] VITALS: BP 121/84
--- NOTE | 2018-12-31 02:55 | NUR ---
PT C/O NAUSEA SINCE LEVAQUIN INFUSION BEGAN. EDP NOTIFIED. VERBAL ORDER FOR ZOFRAN 4MG IV GIVEN.
--- NOTE | 2018-12-31 03:40 | NUR ---
ADMITTED TO ROOM FROM ER C/O SHORTNESS OF BREATH BETTER NOW, EXPITORY WHEEZING NOTED O2 IN USE VIA N/C, SEE ASSESSMENT, CALL LIGHT IN REACH FAMILY MEMBER AT BEDSIDE
[2018-12-31 05:03] VITALS: BP 99/57; BMI 29.4
--- NOTE | 2018-12-31 07:00 | NUR ---
ALERT AND ORIENTED, RESTING IN BED. FAMILY AT BEDSIDE. NO C/O PAIN. NO S/S OF ACUTE DISTRESS NOTED. ON 2L O2, NC. IV TO RIGHT HAND, SL. SITE PATENT WITHOUT REDNESS OR SWELLING. DENIES ANY NEEDS AT THIS TIME. CALL LIGHT IN REACH. WILL CONTINUE TO MONITOR.
[2018-12-31 08:19] VITALS: BP 111/67
[2018-12-31 11:45] VITALS: Ht 177.8 cm; Wt 93.2 kg
[2018-12-31 12:37] VITALS: BP 144/76
[2018-12-31 14:04] LABS: CKMB 6.3 U/L (0.0-3.6); CREATINE KINASE 395 UL (21-232); TROPONIN-I < 0.017 ng/mL (0.000-0.060)
--- NOTE | 2018-12-31 14:54 | NUR ---
I have reviewed this patient and I concur with the Shift Assessment completed by the Licensed Practical Nurse today this shift.
[2018-12-31 16:14] VITALS: BP 117/74
--- NOTE | 2018-12-31 17:03 | NUR ---
OT NOTE: PT COMPLETED MOB WITH R/W WITH MOD A. PT COMPLETED SIT TO STAND WITH MOD A. PT COMPLETED HYGIENE TASKS IN STANDING WITH MAX A. THANK YOU,MAURICIO YEUNG
[2018-12-31 17:39] LABS: CKMB 6.7 U/L (0.0-3.6); CREATINE KINASE 429 UL (21-232)
[2018-12-31 17:40] LABS: TROPONIN-I < 0.017 ng/mL (0.000-0.060)
--- NOTE | 2018-12-31 18:59 | NUR ---
ALERT AND ORIENTED, RESTING IN BED. C/O HEADACHE, NO PAIN MEDS IN EMAR. NO S/S OF ACUTE DISTRESS NOTED. DENIES ANY NEEDS AT THIS TIME. CALL LIGHT IN REACH.
--- NOTE | 2018-12-31 19:45 | NUR ---
UP ON SIDE OF BED WITH AT BEDSIDE. ABLE TO VOICE ALL NEEDS. WILL NOTE ANY CHANGE.
[2018-12-31 20:25] VITALS: BP 113/70
--- NOTE | 2018-12-31 20:26 | NUR ---
SPUTUM COLLECTED AND SENT TO LAB.
--- NOTE | 2018-12-31 23:30 | NUR ---
I have reviewed this patient and I concur with the Shift Assessment completed by the Licensed Practical Nurse today this shift.
[2018-12-31 23:39] LABS: CKMB 7.8 U/L (0.0-3.6); CREATINE KINASE 510 UL (21-232)
[2018-12-31 23:40] LABS: TROPONIN-I < 0.017 ng/mL (0.000-0.060)
[2019-01-01 03:56] VITALS: BP 92/59
[2019-01-01 05:50] LABS: HEMATOCRIT 42.6 % (42.0-54.0); HEMOGLOBIN 14.5 g/dL (13.5-17.5); MCH 31.9 pg (26.0-34.0); MCV 93.8 fL (80.0-100.0); MEAN PLATELET VOLUME 9.6 fL (7.4-10.4); PLATELET COUNT 273 10x3/uL (130-400); RBC 4.54 10x6/uL (4.20-6.10); RDW 13.7 % (11.5-14.5); WBC 21.6 10x3/uL (4.8-10.8)
[2019-01-01 06:15] LABS: ALBUMIN 3.5 g/dL (3.4-5.0); ANION GAP 13.8 mmol/L (8-16); BILIRUBIN - TOTAL 0.41 mg/dL (0.2-1.3); CALCIUM 8.4 mg/dL (8.5-10.1); CARBON DIOXIDE 24.5 mmol/L (21.0-32.0); CREATININE - SERUM 1.6 mg/dL (0.6-1.3); POTASSIUM - SERUM 4.3 mmol/L (3.5-5.1); PROTEIN - SERUM 7.1 g/dL (6.4-8.2)
--- NOTE | 2019-01-01 07:45 | NUR ---
PATIENT SITTING UP ON SIDE OF BED WITH IV INTACT. NO COMPLAINTS OR SIGNS OF DISTRESS. STATED HE WAS GOING TO AMBULATE WITH FAMILY IN HALLWAY. CALL LIGHT WITHIN REACH.
[2019-01-01 08:39] VITALS: BP 110/63
[2019-01-01 09:53] LABS: LYMPHOCYTES 9 % (15-50); MONOCYTES 2 % (2-11); NEUTROPHILS 82 % (40-80); PLATELET ESTIMATE NORMAL
[2019-01-01 09:54] LABS: HYPOCHROMASIA OCC
--- NOTE | 2019-01-01 10:41 | CN ---
PATIENT NAME:HOSSEIN HYATT MEDICAL RECORD: [id number] : 53 LOCATION:D.MS Michelle2215 ADMIT DATE: 12/31/18 ACCOUNT: [id number] CONSULTING PHYSICIAN: MARION MORE MD REFERRING PHYSICIAN: JOSHUA MILLS MD DATE OF CONSULTATION: 12/31/2018 CARDIOLOGY CONSULTATION ADMITTING DIAGNOSES: 1. Chest pain. 2. Asthmatic bronchitis. 3. Coronary artery disease. 4. Previous percutaneous transluminal coronary angioplasty stent. 5. Hypertension. 6. Tachycardia. HISTORY OF PRESENT ILLNESS: Mr. Hyatt presents with 3 weeks of ongoing treatment for bronchitis. He has received 3 Rocephin shots. He continues to have a cough. He developed some chest heaviness, but this was only after coughing episodes. There was also a sharp component associated with coughing. This is nothing like his previous angina. Last cardiac stent was August of this year. His EKG is with no ST-T abnormalities. Troponin is normal. PHYSICAL EXAMINATION: CONSTITUTIONAL/GENERAL APPEARANCE: Well nourished, well developed, appears stated age. EYES: Lids and conjunctivae noninjected. No discharge. No pallor. ENT: Lips within normal limit. No cyanosis. No pallor. NECK: Carotid arteries, bilateral normal upstroke. No bruits. No thrills. No jugular venous pressure or distention. CERVICAL LYMPH NODES: Nontender. Nonenlarged. THYROID: Not enlarged. No nodules. CARDIOVASCULAR: Precordial exam, nondisplaced. No heaves or pericardial thrills. Rate and rhythm, regular. Heart sounds, normal S1, normal S2. No S3, no gallop, no rub. Systolic murmur, not heard. Diastolic murmur, not heard. RESPIRATORY: Respiratory effort, unlabored. Normal curvature. No thoracic deformity. No chest wall tenderness. Percussion, resonant. Auscultation, clear. No wheezes, no rales, no rhonchi. ABDOMEN: Soft, nondistended, nontender. No abdominal pain, no vomiting and normal appetite. MUSCULOSKELETAL: No joint tenderness, normal gait, normal tone. SKIN: Warm and dry. OVERALL IMPRESSION: Chest pain is different from his angina, associated with coughing. Most likely this is not cardiac at all four months after stenting, no EKG changes, normal troponin, no other cardiac workup or treatment is necessary at this time. TRANSINT:[id number] Voice Confirmation ID: [id number] DOCUMENT ID: [id number] CONSULT REPORT [id number] HOSSEIN HYATT, MARION LUCIO at 1041 CC: [id number] DICTATION DATE: 12/31/18 1144 CLAMP TRUCK DRIVER: 12/31/18 1151 ADM IN [place] [address] [place] [address]
--- NOTE | 2019-01-01 11:52 | MORECARE ---
CASE MANAGEMENT DISCHARGE SUMMARY PATIENT: HOSSEIN CHAVEZ UNIT: [id number] ADM DATE: 12/31/18 AGE: 63 : 53 SEX: M ROOM/BED: D.2215 AUTHOR: ANDREA DUNCAN PHYSICIAN: REFERRING PHYSICIAN: JOSHUA MILLS MD DATE OF SERVICE: 01/01/19 Discharge Plan Patient Name: HOSSEIN CHAVEZ Facility: [facility]:[place] : 1955 Planned Disposition: Home or Self Care Anticipated Discharge Date: Discharge Date: Expected LOS: Initial Reviewer: [email or web address] Initial Review Date: 12/31/2018 Generated: 01/01/19 12:51 pm Comments DCP- Discharge Planning Updated by [email or web address]: Leslye Paez on 01/01/19 10:[address] Patient Name: HOSSEIN CHAVEZ Admission Status: ER Accout number: [id number] Admission Date: 12-31-2018 : 1955 Admission Diagnosis: Attending: JOSHUA MILLS Current LOS: 1 Anticipated DC Date: Planned Disposition: Home or Self Care Primary Insurance: [employer] [facility] Discharge Planning Comments: CM met with patient to complete initial dc planning assessment. CM educated patient on the CM role and verbal consent given by patient to complete assessment. Patient lives at home where he is independent with his care. At discharge patient plans to return home and feels this is a safe discharge. CM discussed availability of home health, rehab services, and medical equipment. Patient denied known discharge needs at this time. 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 CM will continue to follow and will assist as needed with dc plans/needs. Rough And Trueing Machine Operator: Leslye Paez DCPIA - Discharge Planning Initial Assessment Updated by [id number]: Leslye Paez on 01/01/19 11:50 am * Is the patient Alert and Oriented? Yes * How many steps to enter\exit or inside your home? * PCP GARRY * Pharmacy [facility] * Preadmission Environment Home Alone * ADLs Independent * Equipment None * List name and contact numbers for known caregivers / representatives who currently or will assist patient after discharge: ABBY (SPOUSE) [phone] * Verbal permission to speak to the caregivers and representatives has been obtained from the patient. Yes * Community resources currently utilized None * Additional services required to return to the preadmission environment? No * Can the patient safely return to the preadmission environment? Yes * Has this patient been hospitalized within the prior 30 days at any hospital? No Patient Name: HOSSEIN CHAVEZ Page 45257 at 1152 All edits/amendments must be made on the electronic document DICTATION DATE: 01/01/191150 DIE CUT OPERATOR: DUNCAN 01/01/191150 RPT#: [id number] DC DATE: STATUS: ADM IN [facility] [address] [place] [address] END OF REPORT
[2019-01-01 12:57] VITALS: BP 112/76
[2019-01-01 17:27] VITALS: BP 118/72
--- NOTE | 2019-01-01 18:30 | NUR ---
PATIENT IN BED WITH NO COMPAINTS OR SIGNS OF DISTRESS. IV INTACT. FAMILY AT BEDSIDE. CALL LIGHT WITHIN REACH.
--- NOTE | 2019-01-01 19:45 | NUR ---
PT SITTING UP IN BED WITHOUT DISTRESS, AOX4. IV RIGHT HAND SL, FLUSHES EASILY. AT BEDSIDE. PT UP AD DORENE WALKING HALLS, NO SOB WITH EXERTION. LUNG SOUNDS DIMINISHED IN ALL LOBES. DENIES NEEDS AT THIS TIME. CL IN REACH, WILL CTM
[2019-01-01 20:00] VITALS: BP 107/64
--- NOTE | 2019-01-01 22:30 | NUR ---
PT REQUESTED BENADRYL TO HELP HIM SLEEP D/T STERIODS KEEPING HIM UP AND MAKING HIM ANXIOUS. CALLED AWILDA TILLMAN APN, ORDERS RECIEVED FOR BENADRYL 50MG IV QHSP
[2019-01-02] VITALS: BP 104/64
[2019-01-02 06:46] LABS: BASOPHILS 0 % (0-2); EOSINOPHILS 0 % (0-7); HEMATOCRIT 43.9 % (42.0-54.0); HEMOGLOBIN 14.9 g/dL (13.5-17.5); IMMATURE GRANULOCYTES 0.5 % (0-5); LYMPHOCYTES 6.8 % (15-50); MCHC 33.9 g/dL (31.0-37.0); MCV 94.4 fL (80.0-100.0); MEAN PLATELET VOLUME 9.8 fL (7.4-10.4); MONOCYTES 2.6 % (2-11); NEUTROPHILS 90.1 % (40-80); PLATELET COUNT 321 10x3/uL (130-400); RBC 4.65 10x6/uL (4.20-6.10); RDW 13.8 % (11.5-14.5); WBC 20.9 10x3/uL (4.8-10.8)
--- NOTE | 2019-01-02 07:10 | NUR ---
PT RESTING IN BED. NO SIGNS OF DISTRESS. IV TO RIGHT HAND PATENT NO REDNESS OR TENDERNESS. ON TELEMETRY SR 81. DENIES ANY FURTHER NEED AT THIS TIME. CALL LIGHT IN REACH. BED LOW POSITION. FAMILY AT BEDSIDE AT THIS TIME.
[2019-01-02 07:14] LABS: ALBUMIN 3.6 g/dL (3.4-5.0); ANION GAP 12.5 mmol/L (8-16); BILIRUBIN - TOTAL 0.39 mg/dL (0.2-1.3); CALCIUM 8.5 mg/dL (8.5-10.1); CARBON DIOXIDE 22.4 mmol/L (21.0-32.0); CREATININE - SERUM 1.6 mg/dL (0.6-1.3); POTASSIUM - SERUM 3.9 mmol/L (3.5-5.1); PROTEIN - SERUM 7.2 g/dL (6.4-8.2)
[2019-01-02 09:21] VITALS: BP 92/59
[2019-01-02 12:16] VITALS: BP 124/60
--- NOTE | 2019-01-02 13:49 | NUR ---
I have reviewed this patient and I concur with the Shift Assessment completed by the Licensed Practical Nurse today this shift.
[2019-01-02 17:09] VITALS: BP 118/77
--- NOTE | 2019-01-02 19:30 | NUR ---
PT SITTING UP IN BED WITHOUT DISTRESS, AOX4. IV RIGHT HAND SL. AT BEDSIDE. DENIES NEEDS. CL IN REACH, WILL CTM
--- NOTE | 2019-01-02 20:30 | NUR ---
PT WALKING HALLWAYS. WITHOUT DISTRESS OR SOB. DENIES NEEDS
--- NOTE | 2019-01-02 21:30 | NUR ---
HS MEDS GIVEN. BENADRYL GIVEN FOR SLEEP. DENIES OTHER NEEDS. WILL CTM
[2019-01-02 21:36] VITALS: BP 106/75
[2019-01-03 04:52] LABS: ALBUMIN 3.4 g/dL (3.4-5.0); BILIRUBIN - TOTAL 0.44 mg/dL (0.2-1.3); CALCIUM 8.1 mg/dL (8.5-10.1); CARBON DIOXIDE 25.1 mmol/L (21.0-32.0); CREATININE - SERUM 1.5 mg/dL (0.6-1.3); PROTEIN - SERUM 6.9 g/dL (6.4-8.2)
[2019-01-03 05:01] LABS: BASOPHILS 0.1 % (0-2); EOSINOPHILS 0 % (0-7); HEMATOCRIT 43.5 % (42.0-54.0); HEMOGLOBIN 14.9 g/dL (13.5-17.5); IMMATURE GRANULOCYTES 0.8 % (0-5); LYMPHOCYTES 8.8 % (15-50); MCH 32.3 pg (26.0-34.0); MCHC 34.3 g/dL (31.0-37.0); MCV 94.4 fL (80.0-100.0); MEAN PLATELET VOLUME 9.9 fL (7.4-10.4); MONOCYTES 3.3 % (2-11); PLATELET COUNT 286 10x3/uL (130-400); RBC 4.61 10x6/uL (4.20-6.10); RDW 13.4 % (11.5-14.5)
[2019-01-03 05:05] LABS: ANION GAP 12.4 mmol/L (8-16); POTASSIUM - SERUM 4.5 mmol/L (3.5-5.1)
[2019-01-03 05:10] LABS: WBC 15.6 10x3/uL (4.8-10.8)
[2019-01-03 05:16] VITALS: BP 108/79
--- NOTE | 2019-01-03 08:26 | NUR ---
PATIENT RECIEVED FROM PREVIOUS SHIFT RESTING NO NEEDS VICED, HOPES TO GO HOME
[2019-01-03] MEDS ORDERED: LEVOFLOXACIN500 MG PO (10:45)
[2019-01-03] MEDS ORDERED: IPRAT-ALBUT 0.5-3 ML UPD (10:46)
[2019-01-03] MEDS ORDERED: MUCINEX DM ER1 EAC1 PO (10:47)
[2019-01-03] MEDS ORDERED: FLUTICASONE PRO16 GM NASAL (10:47)
[2019-01-03] MEDS ORDERED: PROTONIX40 MG PO (10:48)
[2019-01-03] MEDS ORDERED: SINGULAIR10 MG PO (10:48)
[2019-01-03] MEDS ORDERED: TESSALON PERLE100 MG PO (10:48)
[2019-01-03] MEDS ORDERED: PREDNISONE10 MG PO (10:48)
[2019-01-03] MEDS ORDERED: BREO ELLIPTA 21 EACH INH (10:49)
--- NOTE | 2019-01-03 13:48 | MORECARE ---
CASE MANAGEMENT DISCHARGE SUMMARY PATIENT: HOSSEIN CHAVEZ UNIT: [id number] ADM DATE: 12/31/18 AGE: 63 : 53 SEX: M ROOM/BED: D.2215 AUTHOR: DAKOTADOC PHYSICIAN: REFERRING PHYSICIAN: JOSHUA MILLS MD DATE OF SERVICE: 01/03/19 Discharge Plan Patient Name: HOSSEIN CHAVEZ Facility: [facility]:[place] : 1955 Planned Disposition: Home or Self Care Anticipated Discharge Date: Discharge Date: Expected LOS: Initial Reviewer: [email or web address] Initial Review Date: 12/31/2018 Generated: 01/03/19 2:47 pm DCP- Discharge Planning Updated by [email or web address]: Leslye Paez on 01/01/19 10:[address] Patient Name: HOSSEIN CHAVEZ Admission Status: ER Accout number: [id number] Admission Date: 12-31-2018 : 1955 Admission Diagnosis: Attending: JOSHUA MILLS Current LOS: 1 Anticipated DC Date: Planned Disposition: Home or Self Care Primary Insurance: [employer] [facility] Discharge Planning Comments: CM met with patient to complete initial dc planning assessment. CM educated patient on the CM role and verbal consent given by patient to complete assessment. Patient lives at home where he is independent with his care. At discharge patient plans to return home and feels this is a safe discharge. CM discussed availability of home health, rehab services, and medical equipment. Patient denied known discharge needs at this time. 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 CM will continue to follow and will assist as needed with dc plans/needs. Venture Capital Analyst: Leslye Paez DCPIA - Discharge Planning Initial Assessment Updated by [email or web address]: Leslye Paez on 01/01/19 11:50 am * Is the patient Alert and Oriented? Yes * How many steps to enter\exit or inside your home? * PCP GARRY * Pharmacy [facility] * Preadmission Environment Home Alone * ADLs Independent * Equipment None * List name and contact numbers for known caregivers / representatives who currently or will assist patient after discharge: ABBY (SPOUSE) [phone] * Verbal permission to speak to the caregivers and representatives has been obtained from the patient. Yes * Community resources currently utilized None * Additional services required to return to the preadmission environment? No * Can the patient safely return to the preadmission environment? Yes * Has this patient been hospitalized within the prior 30 days at any hospital? No External Providers External Provider: Kathia Next Contact Date: Service Request Date: Service Type: Resolution: Reviewer: Comments: Last DP export: 01/01/19 10:52 Patient Name: HOSSEIN CHAVEZ Page 40240 at 1348 All edits/amendments must be made on the electronic document DICTATION DATE: 01/03/191346 RESIDENCE LIFE COORDINATOR: DUNCAN 01/03/19 1347 RPT#: [id number] DC DATE: STATUS: ADM IN [facility] [address] [place] [address] END OF REPORT
--- NOTE | 2019-01-03 14:16 | MORECARE ---
CASE MANAGEMENT DISCHARGE SUMMARY PATIENT: HOSSEIN CHAVEZ UNIT: [id number] ADM DATE: 12/31/18 AGE: 63 : 53 SEX: M ROOM/BED: D.2215 AUTHOR: ANDREA DUNCAN PHYSICIAN: REFERRING PHYSICIAN: JOSHUA MILLS MD DATE OF SERVICE: 01/03/19 Discharge Plan Patient Name: HOSSEIN CHAVEZ Facility: [facility]:[place] : 1955 Planned Disposition: Home or Self Care Anticipated Discharge Date: Discharge Date: Expected LOS: Initial Reviewer: [email or web address] Initial Review Date: 12/31/2018 Generated: 01/03/19 3:15 pm Comments DCP- Discharge Planning Updated by [email or web address]: Leslye Paez on 01/03/19 1:[address] Patient is discharging home today, he needs a nebulizer, [employer]OD for [employer]. I have called Shiv and she stated that they will deliver to the nebulizer to the home. DCP- Discharge Planning Updated by [email or web address]: Leslye Paez on 01/01/19 10:[address] Patient Name: HOSSEIN CHAVEZ Admission Status: ER Accout number: [id number] Admission Date: 12-31-2018 : 1955 Admission Diagnosis: Attending: JOSHUA MILLS Current LOS: 1 Anticipated DC Date: Planned Disposition: Home or Self Care Primary Insurance: [employer] [facility] Discharge Planning Comments: CM met with patient to complete initial dc planning assessment. CM educated patient on the CM role and verbal consent given by patient to complete assessment. Patient lives at home where he is independent with his care. At discharge patient plans to return home and feels this is a safe discharge. CM discussed availability of home health, rehab services, and medical equipment. Patient denied known discharge needs at this time. 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 CM will continue to follow and will assist as needed with dc plans/needs. Boiler Repair Supervisor: Leslye Paez DCPIA - Discharge Planning Initial Assessment Updated by [id number]: Leslye Paez on 01/01/19 11:50 am * Is the patient Alert and Oriented? Yes * How many steps to enter\exit or inside your home? * PCP [place] * Pharmacy [facility] * Preadmission Environment Home Alone * ADLs Independent * Equipment None * List name and contact numbers for known caregivers / representatives who currently or will assist patient after discharge: ABBY (SPOUSE) [phone] * Verbal permission to speak to the caregivers and representatives has been obtained from the patient. Yes * Community resources currently utilized None * Additional services required to return to the preadmission environment? No * Can the patient safely return to the preadmission environment? Yes * Has this patient been hospitalized within the prior 30 days at any hospital? No Coverage Notice Reviewer: [id number] Kai Paez Notice Issued Date-Time: 01/03/2019 14:00 Notice Type: Patient Choice Letter Notice Delivered To: Patient Relationship to Patient: Fireman Name: Delivery Method: HAND - Hand Delivered Mary Days: Prior Verbal Notification: Recipient Understood Notice: Yes Recipient Signature: Yes Med Rec Note Co-signed by Attending: Coverage Notice Comment: dawood with mary jane KEENAN export: 01/03/19 12:48 Patient Name: HOSSEIN CHAVEZ Page 40817 at 1416 All edits/amendments must be made on the electronic document DICTATION DATE: 01/03/191414 TOLL GATE TENDER: DUNCAN 01/03/191414 RPT#: [id number] DC DATE: STATUS: ADM IN [facility] [address] [place] [address] END OF REPORT
--- NOTE | 2019-01-03 15:24 | NUR ---
IV REMOVED WITH NO REDNESS OR EDEMA. DISCHARGE INSTRUCTIONS GIVEN WITH UNDERSTANDING VOICED. PATIENT TAKEN BY WHEELCHAIR TO PRIVATE CAR.
[2019-01-04 18:08] LABS: IMMUNOGLOBULIN E 914 IU/mL (6-495)
--- NOTE | 2019-01-06 14:15 | MORECARE ---
CASE MANAGEMENT DISCHARGE SUMMARY PATIENT: HOSSEIN CHAVEZ UNIT: [id number] ADM DATE: 12/31/18 AGE: 63 : 53 SEX: M ROOM/BED: D.2215 AUTHOR: ANDREA DUNCAN PHYSICIAN: REFERRING PHYSICIAN: JOSHUA MILLS MD DATE OF SERVICE: 01/06/19 Discharge Plan Patient Name: HOSSEIN CHAVEZ Facility: [facility]:[place] : 1955 Planned Disposition: Home or Self Care Anticipated Discharge Date: Discharge Date: 01/03/2019 Expected LOS: Initial Reviewer: [email or web address] Initial Review Date: 12/31/2018 Generated: 01/06/19 3:15 pm DCP- Discharge Planning Updated by [email or web address]: Leslye Paez on 01/03/19 1:[address] Patient is discharging home today, he needs a nebulizer, [employer] for [employer]. I have called Shiv and she stated that they will deliver to the nebulizer to the home. DCP- Discharge Planning Updated by [email or web address]: Leslye Paez on 01/01/19 10:[address] Patient Name: HOSSEIN CHAVEZ Admission Status: ER Accout number: [id number] Admission Date: 12-31-2018 : 1955 Admission Diagnosis: Attending: JOSHUA MILLS Current LOS: 1 Anticipated DC Date: Planned Disposition: Home or Self Care Primary Insurance: [employer] [facility] Discharge Planning Comments: CM met with patient to complete initial dc planning assessment. CM educated patient on the CM role and verbal consent given by patient to complete assessment. Patient lives at home where he is independent with his care. At discharge patient plans to return home and feels this is a safe discharge. CM discussed availability of home health, rehab services, and medical equipment. Patient denied known discharge needs at this time. 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 CM will continue to follow and will assist as needed with dc plans/needs. Echo Technician: Leslye Paez DCPIA - Discharge Planning Initial Assessment Updated by [email or web address]: Leslye Paez on 01/01/19 11:50 am * Is the patient Alert and Oriented? Yes * How many steps to enter\exit or inside your home? * PCP [facility] * Pharmacy [facility] * Preadmission Environment Home Alone * ADLs Independent * Equipment None * List name and contact numbers for known caregivers / representatives who currently or will assist patient after discharge: ABBY (SPOUSE) [phone] * Verbal permission to speak to the caregivers and representatives has been obtained from the patient. Yes * Community resources currently utilized None * Additional services required to return to the preadmission environment? No * Can the patient safely return to the preadmission environment? Yes * Has this patient been hospitalized within the prior 30 days at any hospital? No Coverage Notice Reviewer: [email or web address] Kai Paez Notice Issued Date-Time: 01/03/2019 14:00 Notice Type: Patient Choice Letter Notice Delivered To: Patient Relationship to Patient: Motor Boss Name: Delivery Method: HAND - Hand Delivered Mary Days: Prior Verbal Notification: Recipient Understood Notice: Yes Recipient Signature: Yes Med Rec Note Co-signed by Attending: Coverage Notice Comment: dawood with mary jane KEENAN export: 01/03/19 1:16 Patient Name: HOSSEIN CHAVEZ Page 24953 at 1415 All edits/amendments must be made on the electronic document DICTATION DATE: 01/06/191413 POOL FINISHER: DUNCAN 01/06/191413 RPT#: [id number] DC DATE:01/03/19 STATUS: DIS IN [facility] [address] [place] [address] END OF REPORT
== END 2019-01-03 15:29 | disposition home or self-care (01) | DRG 193 ==
LOC: D.ER 01:03 → D.MS 02:57
PROVIDERS: Emergency Medicine; Family Medicine; Internal Medicine Pulmonary Disease; ADMIT Internal Medicine Nephrology; ATTEND Internal Medicine Nephrology
DX: J18.9 Pneumonia, unspecified organism (principal); J96.01 Acute respiratory failure with hypoxia; N17.9 Acute kidney failure, unspecified; J45.901 Unspecified asthma with (acute) exacerbation; E86.0 Dehydration; E83.42 Hypomagnesemia; R07.1 Chest pain on breathing; I25.10 Atherosclerotic heart disease of native coronary artery without angina pectoris; E66.9 Obesity, unspecified; Z68.29 Body mass index [BMI] 29.0-29.9, adult; R00.0 Tachycardia, unspecified; I12.9 Hypertensive chronic kidney disease with stage 1 through stage 4 chronic kidney disease, or unspecified chronic kidney disease; N18.9 Chronic kidney disease, unspecified; K21.9 Gastro-esophageal reflux disease without esophagitis; E65 Localized adiposity

== ENCOUNTER → 2019-01-20 08:12 | Outpatient (CLI) | payer BC, MEDICARE ==
[2018-12-31 11:45] VITALS: BMI 29.4
[~2019-01-20 08:12] MED LIST changes: +ALBUTEROL SULF8.5 GM INH; +BREO ELLIPTA 21 EACH INH; +FLUTICASONE PRO16 GM NASAL; +IPRAT-ALBUT 0.5-3 ML UPD; +LEVOFLOXACIN500 MG PO; +MONODOX100 MG; +MUCINEX DM ER1 EAC1 PO; +PREDNISONE10 MG PO; +PROTONIX40 MG PO; +SINGULAIR10 MG PO; +TESSALON PERLE100 MG PO
--- NOTE | 2019-01-21 14:03 | EC ---
PATIENT:HOSSEIN CHAVEZ DATE OF SERVICE: 01/20/19 SEX: M MEDICAL RECORD: [id number] DATE OF : [birth year] [facility] AGE OF PATIENT: 63 ADMISSION DATE: 01/20/19 REFERRING PHYSICIAN: INTERPRETING PHYSICIAN: JOSE SHI MD ECHOCARDIOGRAM REPORT ECHO CHARGES 4 ECHO COMPLETE Date: 01/20/19 CLINICAL DIAGNOSIS: MITRAL REGURG ECHOCARDIOGRAPHIC MEASUREMENTS (adult normal given) AC root (d.<3.7cm) 3.7 cm LV Septum d (<1.2 cm> 1.4 cm Valve Excursion 1.8 cm LV Septum (systole) 1.9 cm Left Atria (s.<4.0cm> 3.4 cm LVPW d(<1.2cm) 1.9 cm RV (d.<2.3cm) 4.1 cm LVPW (sytole) 2.0 cm LV diastole(<5.6CM) 4.6 cm MV E-F(>70mm/sec) cm LV systole 2.6 cm LVOT Diameter 2.0 cm MV exc.(>10mm) 1.6 cm Est.ejection fraction (50-75%) % DOPPLER: LVIT cm/sec A 74.0 cm/sec E 56.0 cm/sec LA cm/sec RVSP 30 mmHg LVOT 88 cm/sec AOP1/2T m/s Asc. Ao 128 cm/sec RVOT 71 cm/sec RA cm/sec PA 99 cm/sec AV Gradient Peak 6.52 mmHg AV Mean 3.38 mmHg AV Area 2.4 cm MV Gradient Peak 2.13 mmHg MV Mean 1.07 mmHg MV Area cm COMMENTS: Remote Mortgage Underwriter: 2 LUIS DANIEL MUHAMMAD Senior Lead Java Developer: 3 Dr. Do TAPE# PACS Pericardial Effusion N DATE OF SERVICE: Adequate 2D, Color Flow, Spectral Doppler, M-mode LVH present. LV internal dimensions normal. Wall motion is normal. EF is greater than or equal to 55%. Aortic valve is tricuspid. No evidence of stenosis with Doppler interrogation. Left atrium is normal at 3.4 cm. Mitral valve shows no prolapse. Mild MR. Right-sided chambers grossly normal. Trace TR. ECHOCARDIOGRAM REPORT [id number] HOSSEIN CHAVEZ TRANSINT:[id number] Voice Confirmation ID: [id number] DOCUMENT ID: [id number] JOSE SHI MD at 1403 CC: [id number] DICTATION DATE: 01/20/19 1418 CLIENT SUPPORT PROFESSIONAL: 01/20/19 1801 DEP CLI 01/20/19 [address] [id number] [place] [address]
== END | disposition home or self-care (01) ==
LOC: D.HCCECHO 08:12 → D.HCCARDIO 08:30
PROVIDERS: ATTEND Internal Medicine Interventional Cardiology
DX: I34.0 Nonrheumatic mitral (valve) insufficiency (principal)

== ENCOUNTER → 2019-04-24 09:06 | Outpatient (CLI) | payer BC, MEDICARE ==
[2018-12-31 11:45] VITALS: BMI 29.4
== END | disposition home or self-care (01) ==
LOC: D.US 09:06
PROVIDERS: ATTEND Surgery
DX: R10.2 Pelvic and perineal pain (principal)